=== PATIENT | female | born 1975 | race Caucasian/White ===

== ENCOUNTER → 2017-09-16 14:55 | Outpatient (CLI) | payer BC, SELFPAY ==
--- NOTE | 2017-09-16 | US_ITS ---
MM Dig mamm DX unilat RT CAD, US breast RT complete COMPARISON: 01/20/2017 INDICATION: Follow-up cyst aspiration ORDERING PHYSICIAN: Doe Newman MD PATIENT AGE: 42 years TECHNIQUE: Standard images performed spot compression views and right breast ultrasound FINDINGS: Right Mammogram: There is dense fibroglandular tissue which decreases sensitivity of mammography.. No malignant appearing mass or malignant appearing microcalcification nonspecific asymmetric density is noted medial aspect of the right breast similar to the previous exam consistent with fibroglandular tissue as noted on multiple previous exams. There is some asymmetric density in the central aspect of the right breast on the MLO view which is felt to be due to fibroglandular tissue as well. Right breast ultrasound: The previously noted complex nodule at outer 8:00 is no longer apparent. There are some debris-filled ducts at the 8:00 near the nipple region. No suspicious nodules evident. IMPRESSION: Benign findings. No evidence of malignancy. Previously noted complex nodule at 8:00 no longer apparent. There are some fluid-filled/debris-filled ducts at 8:00. BI-RADS Category: 2 Benign Finding(s) RECOMMENDED FOLLOW-UP: 1YR - 1 YEAR FOLLOW-UP Bilateral screening mammogram January 2018 (A letter has been sent to the patient regarding results of the study.)
== END ==
PROVIDERS: PCP Internal Medicine Adolescent Medicine; Visit Provider Obstetrics & Gynecology
DX: R92.8 Other abnormal and inconclusive findings on diagnostic imaging of breast (principal)
CPT/HCPCS: 76641; 77065

== ENCOUNTER 2017-10-07 07:05 | Day surgery (SDC) | payer BC, SELFPAY ==
[2017-10-06 12:05] VITALS: BMI 28.1
[2017-10-07] VITALS (12 sets, daily range): BP systolic 111–134; BP diastolic 64–83; PULSE 63–99; RESP 14–20; TEMP 36.7; O2SAT 96–99
[2017-10-07 08:09] LABS: Basophils % 0.4 % (0.1-2.0); Eosinophils # 0.2 K/mm3 (0.0-0.4); Hematocrit 41.4 % (37.0-47.0); Hemoglobin 13.8 g/dL (12.2-16.2); Lymphocytes # 3.1 K/mm3 (0.7-4.5); Lymphocytes % 30.1 K/mm3 (10-50); Mean Corpuscular HGB Conc 33.3 g/dL (31.8-35.4); Mean Corpuscular Hemoglobin 29.8 pg (27.0-31.2); Mean Corpuscular Volume 89.7 fl (81-99); Mean Platelet Volume 7.9 fl (7.4-10.4); Monocytes # 0.7 K/mm3 (0.1-1.0); Monocytes % 6.4 % (1.7-9.3); Neutrophils # 6.3 K/mm3 (1.8-7.8); Neutrophils % 61.1 % (37.0-80.0); Platelet Count 263 K/mm3 (142-424); Red Blood Count 4.62 M/mm3 (4.20-5.40); Red Cell Distribution Width 12.2 % (11.5-17.5); White Blood Count 10.3 K/mm3 (4.8-10.8)
--- NOTE | 2017-10-07 08:12 | HMH.SCOPE ---
- Procedure: Date: 10/07/17 Procedure Performed:: Esophagogastroduodenoscopy with biopsy Indications:: This is a 42-year-old female with a known history of mild shotty ring, gastric heterotopia duodenal mucosa, and gastritis/duodenitis. She returns for short-term repeat EGD secondary to reevaluation regarding gastric heterotopia. Performing Provider:: Stalin Ortiz MD Referring Provider:: Dr. Shahram Gupta Sedation:: IV sedation with 11 mg of Versed and 200 mcg of fentanyl Procedure:: After informed consent was obtained, the patient was taken to the endoscopy suite. IV sedation ensued after she was transferred to the left lateral decubitus position. The gastroscope was advanced. The gastroesophageal junction was at 39 cm. No definitive sign of Schatzki ring noted. The stomach was entered. Patchy inflammation was noted; however, the degree of inflammation was improved versus prior evaluation. Antral biopsies were obtained. The pylorus was intubated. Changes consistent with known diagnosis of heterotopia were noted and biopsies were obtained of the duodenal bulb. The gastroscope was carefully removed and the patient was transferred to recovery. Findings:: Gastroesophageal junction at 39 cm Mild gastritis Essentially unchanged gastric heterotopia of duodenal bulb Specimens:: Antral biopsy Duodenal bulb biopsy Recommendations:: Continue current medications Follow-up in 1 week Complications:: No immediate Estimated blood obtained (mL): 1
--- NOTE | 2017-10-07 08:16 | P.PCN_ITS ---
- Procedure: Date: 10/07/17 Procedure Performed:: Esophagogastroduodenoscopy with biopsy Indications:: This is a 42-year-old female with a known history of mild shotty ring, gastric heterotopia duodenal mucosa, and gastritis/duodenitis. She returns for short- term repeat EGD secondary to reevaluation regarding gastric heterotopia. Performing Provider:: Stalin Ortiz MD Referring Provider:: Dr. Shahram Gupta Sedation:: IV sedation with 11 mg of Versed and 200 mcg of fentanyl Procedure:: After informed consent was obtained, the patient was taken to the endoscopy suite. IV sedation ensued after she was transferred to the left lateral decubitus position. The gastroscope was advanced. The gastroesophageal junction was at 39 cm. No definitive sign of Schatzki ring noted. The stomach was entered. Patchy inflammation was noted; however, the degree of inflammation was improved versus prior evaluation. Antral biopsies were obtained. The pylorus was intubated. Changes consistent with known diagnosis of heterotopia were noted and biopsies were obtained of the duodenal bulb. The gastroscope was carefully removed and the patient was transferred to recovery. Findings:: Gastroesophageal junction at 39 cm Mild gastritis Essentially unchanged gastric heterotopia of duodenal bulb Specimens:: Antral biopsy Duodenal bulb biopsy Recommendations:: Continue current medications Follow-up in 1 week Complications:: No immediate Estimated blood obtained (mL): 1
[2017-10-07 08:31] LABS: Alanine Aminotransferase 27 U/L (12-78); Albumin Level 3.7 gm/dL (3.4-5.0); Albumin/Globulin Ratio 1.2 (1.1-1.8); Alkaline Phosphatase 64 U/L (46-116); Aspartate Amino Transferase 17 U/L (15-37); Bilirubin,Total 0.5 mg/dL (0.2-1.0); Blood Urea Nitrogen 15 mg/dL (7-18); Calcium 8.9 mg/dL (8.5-10.1); Carbon Dioxide 30 mmol/L (21.0-32.0); Chloride 108 mmol/L (98-107); Chol/HDL Ratio 2.6 (1-3.5); Cholesterol 175 mg/dL (140-200); Creatinine Clearance Estimated 93 mL/min (0-300); Creatinine,Serum 0.93 mg/dL (0.55-1.02); Estimated Glomerular Filt Rate 65 ml/min (>60); GFR (African American) 79 ML/MIN (>60); Globulin 3.1 gm/dl (1.3-3.2); Glucose 98 mg/dL (74-106); HDL Cholesterol 67 mg/dL (29-89); LDL Cholesterol 96 mg/dL (0-130); Sodium 144 mmol/L (136-145); Total Protein,Serum 6.8 gm/dL (6.4-8.2); Triglycerides 62 mg/dL (30-200); VLDL Cholesterol 12 mg/dL (0-40)
== END 2017-10-07 09:05 | disposition home or self-care (01) ==
LOC: OUTP 07:09
PROVIDERS: Nurse Practitioner Family; PCP Internal Medicine Adolescent Medicine; Visit Provider Surgery
PROC: 0DJ08ZZ Inspection of Upper Intestinal Tract, Via Natural or Artificial Opening Endoscopic (ICD-10-PCS; CPT 43235; principal; 2017-10-07 07:30)
DX: Q40.2 Other specified congenital malformations of stomach (principal)
CPT/HCPCS: 43239; 36415; 80053; 80061; 85025; 99152

== ENCOUNTER 2017-10-25 09:00 | Outpatient (RCR) | payer BC, SELFPAY ==
--- NOTE | 2017-10-04 08:57 | HMH.PTOPEV ---
Rehab Outpatient Evaluation Rehab OP Evaluation Start: 10/04/17 08:44 Freq: Status: Active Protocol: Document 10/04/17 08:44 PHORBISI (Rec: 10/04/17 08:54 PHORNE [id number]) Electronically Signed By Rayray Villanueva, PT 10/04/17 08:44 Outpatient Therapy Subjective History Subjective History Pt presents with c/o ciaran ankle /foot pain x 1-2 yrs overall, much worse x 2-3 mos and in the right LE. Pt reports hx of bone spurs on right hip which may contribute to problems in her feet. She reports pain is worse upon waking and in the evening after resting for even short periods of time. PMH: OA, FM, Cervical Cancer. Chief Complaint Pain Stiff Symptom Type Ache Symptoms Relieved By Rest/Positioning Symptoms Aggravated By Physical Activity Prior Functional Limitations None Current Functional Limitations Standing Walking Symptom Description Activity Dependent Level of pain today (0-10) 0 Pain scale - at its worst (0-10) 4 Ankle/Foot Eval Gait Observation General Gait Pattern Observation No Deviations/Normal Palpation Tenderness right Ankle/Foot Palpation Findings Tenderness Ankle/Foot Palpation Overall Comment medial ankle superior to malleolus, post tib tendon ROM Ankle/Foot Dorsiflexion w/Knee Flexed 0-15 Active Range of Motion (degrees) Ankle/Foot Dorsiflexion W/Knee Flexed 0-21 Passive Range Motion (degrees) Ankle/Foot ROM Limitations Soft Tissue Tightness MMT bilateral Ankle Dorsiflexion Strength Grade 5 Normal Ankle Plantarflexion Strength Grade 5 Normal Foot Eversion Strength Grade 5 Normal Foot Inversion Strength Grade 5 Normal Ankle Dorsiflexors Muscle Tone Normal Description Outpatient Therapy Assessment Impairments Problems/Impairmments Palpation Tenderness Impaired Range of Motion Impaired Walking Subjective C/O Pain Impaired Self Care/Self Management Prognosis Rehab Potential Good Clinical Impression Consistent with Diagnosis Yes Short Term Goals Number of Weeks 4 Increase Range of Motion Yes: right DF by 5 deg Increase Ability to Walk Yes: 30 min without pain Decrease Subjective C/O Pain Yes: 10/16 Patient to be Ind w/ HEP Yes
== END 2017-10-25 09:01 | disposition home or self-care (01) ==
LOC: PT 09:00
PROVIDERS: PCP Internal Medicine Adolescent Medicine; Visit Provider Podiatrist
DX: M76.61 Achilles tendinitis, right leg (principal)
CPT/HCPCS: 97033; 97035; 97110; 97140; 97760

== ENCOUNTER → 2018-07-15 09:33 | Outpatient (CLI) | payer BC, SELFPAY ==
--- NOTE | 2018-07-15 09:49 | US_ITS ---
MM Dig mamm BI DX w/CAD, US breast RT complete INDICATION: Follow up abnormal mammogram and ultrasound ORDERING PHYSICIAN: Doe Newman MD PATIENT AGE: 43 years COMPARISON: 01/04/2017, 09/16/2017, 11/29/2014 TECHNIQUE: Standard images performed along spot compression views of the right breast and right breast ultrasound FINDINGS: There is dense fibroglandular tissue decreases sensitivity of mammography. There is a 7 x 7 mm fairly well-circumscribed nodule in the 6:00 region of the right breast. This nodule is slightly smaller previously at 8 mm. No malignant appearing mass or malignant appearing microcalcification. Asymmetric density is present involving the medial aspect of the right breast which does appear to compress out on the focal spot compression view. Right breast ultrasound: 5 mm cyst at 3:00 8 mm hypoechoic nodule at 8:00. The margins are somewhat lobulated with good through transmission of sound. This however does not appear to represent a simple cyst. Previously there was a hypoechoic nodule in this area that did aspirate however, this does not appear to represent a cyst. Ductal dilatation near the nipple at 8:00 Left breast: Scattered asymmetric fibroglandular elements. No discrete mass or malignant microcalcification. IMPRESSION: Hypoechoic slightly suspicious nodule at 8:00 and 8 mm. Ultrasound-guided aspiration/biopsy suggested BI-RADS Category: 4 Suspicious Abnormality-Biopsy Considered RECOMMENDED FOLLOW-UP: BIO - BIOPSY RECOMMENDED (A letter has been sent to the patient regarding results of the study.)
== END ==
PROVIDERS: PCP Obstetrics & Gynecology; Visit Provider Obstetrics & Gynecology
DX: R92.8 Other abnormal and inconclusive findings on diagnostic imaging of breast (principal)
CPT/HCPCS: 76641; 77066

== ENCOUNTER → 2018-08-03 12:03 | Outpatient (CLI) | payer BC, SELFPAY ==
--- NOTE | 2018-08-03 12:05 | US_ITS ---
US breast cyst asp, US organ site (breast) HISTORY: Mildly suspicious nodule at 8:00 noticed on prior ultrasound. There was also a cyst at 3:00 measuring 5 mm. This however did not correspond to patient's palpable abnormality and therefore was not aspirated due to the small size and to the fact that it was not bothersome to the patient. The palpable abnormality represented fibroglandular tissue. ITS.REASON: RT. BREAST MASS X 2 ORDERING PHYSICIAN: Doe Newman MD PATIENT AGE: 43 years COMPARISON: 07/15/2018 Prebiopsy ultrasound: Ultrasound performed for the biopsy for planning demonstrates a 7 by 6 mm complex hypoechoic nodule at 8:00 near the nipple. This corresponded to the mildly suspicious abnormality noted on the previous ultrasound. The lesion however now appears more hypoechoic and likely due to a cyst with some internal debris. There was also a cyst at 3:00 measuring 5 mm. This however did not correspond to patient's palpable abnormality and therefore was not aspirated due to the small size and to the fact that it was not bothersome to the patient. The palpable abnormality represented fibroglandular tissue. TECHNIQUE: Following obtaining informed consent, using aseptic technique and local anesthesia with buffered lidocaine, fine-needle aspiration was performed of the nodule of interest at 8:00 near the nipple using sonographic guidance. One pass was made into the nodule with a 25-gauge needle. The nodule was completely aspirated. Minimal amount of greenish fluid was aspirated and sent to cytology for evaluation. The patient tolerated the procedure well without evidence of immediate complications and left the ultrasound suite in stable condition. CYTOLOGY:Negative for malignancy. Benign ductal cells and foam cells consistent with benign cyst IMPRESSION: Successful sonographic guided aspiration of the hypoechoic lesion at 8:00 showing benign findings. Recommend follow-up ultrasound in 6 months.
== END ==
PROVIDERS: PCP Internal Medicine Adolescent Medicine; Visit Provider Obstetrics & Gynecology
DX: N63.13 Unspecified lump in the right breast, lower outer quadrant
CPT/HCPCS: 10022; 76641; 76942

== ENCOUNTER 2018-10-14 08:44 | Outpatient (RCR) | payer BC, SELFPAY ==
--- NOTE | 2018-10-14 09:21 | HMH.OTOPEV ---
OT Inpatient Evaluation Rehab OT Outpatient Eval Start: 10/14/18 09:11 Freq: Status: Active Protocol: Document 10/14/18 09:11 TFRY (Rec: 10/14/18 09:21 TFRY [id number]) Electronically Signed By Galilea De La Vega, OT 10/14/18 09:11 Outpatient Therapy Subjective History Subjective History This is a 43 year old right handed female referred to occupational therapy for right wrist pain. Patient states that she woke up one morning with right wrist/thumb pain. She is unable to recall doing anything to it. 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 Strength Right Marine Photographer Strength Measurement (lbs) 70 Palmar Pinch (3-point) Ability Normal Performance Palmar Pinch (3-point) Strength 16 Measurement (lbs) Tip Pinch (2-point) Ability Normal Performance Tip Pinch (2-point) Strength Measurement 14 (lbs) Lateral Pinch Ability Normal Performance Lateral Pinch Strength Measurement (lbs) 18 Special Tests Wrist Finklestein Test Positive Right OT Outpatient Assessment Impairments Problems/Impairments Palpation Tenderness Subjective C/O Pain Prognosis Rehab Potential Fair Clinical Impression Consistent with Diagnosis Yes Short Term Goals Number of Weeks 3 Decreased Palpation Tenderness Yes: Right anatomical snuff box Decrease Subjective C/O Pain Yes: pain a 5 at worse in right wrist Patient to be Ind w/ HEP Yes Patient to be Ind w/ Advanced HEP Yes Meters Superintendent Goals Number of Weeks 6 Decreased Palpation Tenderness Yes: right anatomical snuff box Decrease Subjective C/O Pain Yes: Pain a 3 at worse in right wrist Patient to be Ind w/ HEP Yes Patient to be Ind w/ Advanced HEP Yes Outpatient Therapy Plan of C
== END 2018-10-14 08:55 | disposition home or self-care (01) ==
LOC: OT 08:44
PROVIDERS: Visit Provider Internal Medicine Adolescent Medicine
DX: M25.531 Pain in right wrist (principal); M65.4 Radial styloid tenosynovitis [de Quervain]
CPT/HCPCS: 97165

== ENCOUNTER → 2019-01-20 08:30 | Outpatient (CLI) | payer BC, SELFPAY ==
[2019-01-20 09:42] LABS: Alanine Aminotransferase 31 U/L (12-78); Albumin/Globulin Ratio 1.2 (1.1-1.8); Alkaline Phosphatase 76 U/L (46-116); Aspartate Amino Transferase 17 U/L (15-37); Blood Urea Nitrogen 14 mg/dL (7-18); Calcium 9.1 mg/dL (8.5-10.1); Carbon Dioxide 29 mmol/L (21.0-32.0); Chloride 102 mmol/L (98-107); Chol/HDL Ratio 5.5 (1-3.5); Cholesterol 293 mg/dL (140-200); Creatinine,Serum 0.88 mg/dL (0.55-1.02); Estimated Glomerular Filt Rate 69 ml/min (>60); Free T4 (Free Thyroxine) 0.93 ng/dl (0.76-1.46); GFR (African American) 84 ML/MIN (>60); Globulin 3.4 gm/dl (1.3-3.2); Glucose 94 mg/dL (74-106); HDL Cholesterol 53 mg/dL (29-89); LDL Cholesterol 215 mg/dL (0-130); Sodium 141 mmol/L (136-145); Thyroid Stimulating Hormone 1.04 uIU/ml (0.358-3.740); Total Protein,Serum 7.4 gm/dL (6.4-8.2); Triglycerides 125 mg/dL (30-200); VLDL Cholesterol 25 mg/dL (0-40)
== END ==
PROVIDERS: Visit Provider Nurse Practitioner Family
DX: R23.2 Flushing (principal); E78.5 Hyperlipidemia, unspecified
CPT/HCPCS: 36415; 80053; 80061; 84439; 84443

== ENCOUNTER → 2019-02-03 14:16 | Outpatient (CLI) | payer OTHER, SELFPAY | PROVIDERS: PCP Internal Medicine Adolescent Medicine; Visit Provider Obstetrics & Gynecology | DX: R92.8 Other abnormal and inconclusive findings on diagnostic imaging of breast (principal) ==

== ENCOUNTER → 2019-02-17 09:26 | Outpatient (CLI) | payer OTHER, SELFPAY ==
--- NOTE | 2019-02-17 09:26 | US_ITS ---
US breast RT complete INDICATION: 6 month follow-up ORDERING PHYSICIAN: Doe Newman MD PATIENT AGE: 43 years COMPARISON: None TECHNIQUE: Right breast ultrasound complete with axilla FINDINGS: There is a 4 mm hypoechoic nodule at 3:00 probably benign and may represent a small complex cyst. Previously noted nodule at 8:00 has not recurred. There is a 7 x 4 mm cyst at 10:00. IMPRESSION: Benign findings, no evidence of malignancy or recurrent nodule was aspirated. Recommend screening mammogram July 2019 BI-RADS Category: 2 Benign Finding(s) RECOMMENDED FOLLOW-UP: 6M - 6 MONTH FOLLOW-UP (A letter has been sent to the patient regarding results of the study.)
== END ==
PROVIDERS: PCP Internal Medicine Adolescent Medicine; Visit Provider Obstetrics & Gynecology
DX: N63.10 Unspecified lump in the right breast, unspecified quadrant (principal)
CPT/HCPCS: 76641

== ENCOUNTER → 2019-04-20 12:11 | Outpatient (CLI) | payer OTHER, SELFPAY ==
[2019-04-20 14:56] LABS: Alanine Aminotransferase 23 U/L (12-78); Albumin Level 3.9 gm/dL (3.4-5.0); Albumin/Globulin Ratio 1.2 (1.1-1.8); Alkaline Phosphatase 85 U/L (46-116); Anion Gap 13.9 mEq/L (5-15); Aspartate Amino Transferase 13 U/L (15-37); Bilirubin,Total 0.7 mg/dL (0.2-1.0); Blood Urea Nitrogen 15 mg/dL (7-18); Calcium 9.5 mg/dL (8.5-10.1); Carbon Dioxide 30 mmol/L (21.0-32.0); Chloride 105 mmol/L (98-107); Chol/HDL Ratio 3.6 (1-3.5); Cholesterol 225 mg/dL (140-200); Creatinine,Serum 0.86 mg/dL (0.55-1.02); Estimated Glomerular Filt Rate 71 ml/min (>60); GFR (African American) 86 ML/MIN (>60); Globulin 3.3 gm/dl (1.3-3.2); Glucose 85 mg/dL (74-106); HDL Cholesterol 62 mg/dL (29-89); LDL Cholesterol 147 mg/dL (0-130); Potassium 3.9 mmoL/L (3.5-5.1); Sodium 145 mmol/L (136-145); Total Protein,Serum 7.2 gm/dL (6.4-8.2); Triglycerides 80 mg/dL (30-200); VLDL Cholesterol 16 mg/dL (0-40)
== END ==
PROVIDERS: Visit Provider Nurse Practitioner Family
DX: E78.5 Hyperlipidemia, unspecified (principal)
CPT/HCPCS: 36415; 80053; 80061

== ENCOUNTER → 2019-10-09 09:09 | Outpatient (CLI) | payer OTHER, SELFPAY ==
[2019-10-09 09:35] LABS: Basophils % 0.6 % (0.1-2.0); Eosinophils # 0.3 K/mm3 (0.0-0.4); Eosinophils % 4.3 % (0.1-12.0); Hematocrit 41.2 % (37.0-47.0); Hemoglobin 13.2 g/dL (12.2-16.2); Lymphocytes # 2.5 K/mm3 (0.7-4.5); Lymphocytes % 37.9 % (10-50); Mean Corpuscular HGB Conc 32.1 g/dL (31.8-35.4); Mean Corpuscular Hemoglobin 29.9 pg (27.0-31.2); Mean Corpuscular Volume 93.1 fl (81-99); Mean Platelet Volume 7.7 fl (7.4-10.4); Monocytes # 0.5 K/mm3 (0.1-1.0); Neutrophils # 3.3 K/mm3 (1.8-7.8); Neutrophils % 50.2 % (37.0-80.0); Platelet Count 284 K/mm3 (142-424); Red Blood Count 4.42 M/mm3 (4.20-5.40); Red Cell Distribution Width 12.3 % (11.5-17.5); White Blood Count 6.6 K/mm3 (4.8-10.8)
[2019-10-09 10:21] LABS: Alanine Aminotransferase 25 U/L (12-78); Albumin Level 3.8 gm/dL (3.4-5.0); Albumin/Globulin Ratio 1.5 (1.1-1.8); Alkaline Phosphatase 87 U/L (46-116); Anion Gap 11.7 mEq/L (5-15); Aspartate Amino Transferase 20 U/L (15-37); Bilirubin,Total 0.5 mg/dL (0.2-1.0); Blood Urea Nitrogen 21 mg/dL (7-18); Calcium 8.6 mg/dL (8.5-10.1); Carbon Dioxide 29 mmol/L (21.0-32.0); Chloride 106 mmol/L (98-107); Chol/HDL Ratio 3.7 (1-3.5); Cholesterol 205 mg/dL (140-200); Creatinine,Serum 0.99 mg/dL (0.55-1.02); Estimated Glomerular Filt Rate 60 ml/min (>60); GFR (African American) 73 ML/MIN (>60); Globulin 2.6 gm/dl (1.3-3.2); Glucose 105 mg/dL (74-106); HDL Cholesterol 56 mg/dL (29-89); LDL Cholesterol 136 mg/dL (0-130); Potassium 3.7 mmoL/L (3.5-5.1); Sodium 143 mmol/L (136-145); Thyroid Stimulating Hormone 1.07 uIU/ml (0.358-3.740); Total Protein,Serum 6.4 gm/dL (6.4-8.2); Triglycerides 67 mg/dL (30-200); VLDL Cholesterol 13 mg/dL (0-40)
[2019-10-10 14:02] LABS: Vitamin B12 485 pg/mL (232-1245)
== END ==
PROVIDERS: Visit Provider Nurse Practitioner Family
DX: E78.5 Hyperlipidemia, unspecified (principal); R53.81 Other malaise; M25.851 Other specified joint disorders, right hip
CPT/HCPCS: 36415; 80053; 80061; 82607; 82652; 84443; 85025

== ENCOUNTER → 2020-03-20 09:10 | Outpatient (CLI) | payer OTHER, SELFPAY ==
[2020-03-20 14:18] LABS: Alanine Aminotransferase 18 U/L (12-78); Albumin Level 4.4 g/dl (3.5-5.0); Albumin/Globulin Ratio 1.6 (1.1-1.8); Alkaline Phosphatase 93 U/L (38-126); Amylase 39 U/L (30-110); Anion Gap 10.9 mEq/L (5-15); Aspartate Amino Transferase 28 U/L (14-36); Basophils % 0.4 % (0.1-2.0); Bilirubin,Total 0.9 mg/dl (0.2-1.3); Blood Urea Nitrogen 15 mg/dl (7-17); Calcium 9.4 mg/dl (8.4-10.2); Carbon Dioxide 31 mmol/L (22.0-30.0); Chloride 103 mmol/L (98-107); Chol/HDL Ratio 3.3 (1-3.5); Cholesterol 210 mg/dl (140-200); Eosinophils # 0.4 K/mm3 (0.0-0.4); Eosinophils % 5.9 % (0.1-12.0); Estimated Glomerular Filt Rate 77 ml/min (>60); GFR (African American) 93 ML/MIN (>60); Globulin 2.7 g/dL (1.3-3.2); Glucose 102 mg/dl (74-100); HDL Cholesterol 63 mg/dl (40-60); Hematocrit 43.3 % (37.0-47.0); Hemoglobin 14.6 g/dL (12.2-16.2); Lipase 48 U/L (23-300); Lymphocytes # 2.5 K/mm3 (0.7-4.5); Lymphocytes % 40.6 % (10-50); Mean Corpuscular HGB Conc 33.8 g/dL (31.8-35.4); Mean Corpuscular Hemoglobin 31.6 pg (27.0-31.2); Mean Corpuscular Volume 93.4 fl (81-99); Mean Platelet Volume 9.5 fl (7.4-10.4); Monocytes # 0.4 K/mm3 (0.1-1.0); Monocytes % 6.8 % (1.7-9.3); Neutrophils # 2.9 K/mm3 (1.8-7.8); Neutrophils % 46.3 % (37.0-80.0); Platelet Count 292 K/mm3 (142-424); Potassium 3.9 mmoL/L (3.5-5.1); Red Blood Count 4.63 M/mm3 (4.20-5.40); Red Cell Distribution Width 12.7 % (11.5-17.5); Sodium 141 mmol/L (136-145); Total Protein,Serum 7.1 g/dl (6.3-8.2); Triglycerides 108 mg/dl (30-150); VLDL Cholesterol 22 mg/dL (0-40); White Blood Count 6.2 K/mm3 (4.8-10.8)
[2020-03-20 14:36] LABS: Direct LDL Cholesterol 131.34 mg/dL (100-129)
[2020-03-20 14:50] LABS: Thyroid Stimulating Hormone 1.12 uIU/mL (0.465-4.68)
[2020-03-20 17:22] LABS: Erythrocyte Sedimentation Rate 8 mm/hr (0-20)
[2020-03-21 17:04] LABS: RA Latex Turbid. <10.0 IU/mL (0.0-13.9)
[2020-03-23 07:35] LABS: Anti-Cyclic Citrullinated Pept 6 units (0-19)
[2020-03-31 18:13] LABS: Antinuclear Antibodies (ANA) NEGATIVE
== END ==
PROVIDERS: PCP Nurse Practitioner Family; Visit Provider Nurse Practitioner Family
DX: E78.5 Hyperlipidemia, unspecified (principal); M25.542 Pain in joints of left hand; M25.541 Pain in joints of right hand; R10.13 Epigastric pain
CPT/HCPCS: 36415; 80053; 80061; 82150; 83690; 84443; 85025; 85651; 86038; 86200; 86431

== ENCOUNTER → 2020-04-26 08:56 | Outpatient (CLI) | payer BC, SELFPAY ==
--- NOTE | 2020-04-26 08:56 | MM_ITS ---
PROCEDURE: MM DIG SCREENING MAMM BI W/CAD Digital Breast Tomosynthesis Included CLINICAL INDICATION: screening xmg There is a history of breast cancer patient's maternal aunts and paternal grandmother COMPARISON: MG DMDXUR DIG MAMM-DX UNI-RT W/CAD from 01/20/2017 MG DXRT MM Dig mamm DX unilat RT CAD from 09/16/2017 TECHNIQUE: Standard CC and MLO images and 3D Tomosynthesis was obtained. R2 CAD reviewed. FINDINGS: There is a diffusely dense and heterogenic parenchymal pattern bilaterally. There is a benign-appearing microcalcification left breast. There are stable benign-appearing nodular densities subareolar region right breast. There is no suspicious lesion and no suspicious microcalcifications. IMPRESSION: Moderately and diffusely dense parenchymal pattern with no suspicious lesions seen BI-RAD Category: 2 Benign Finding(s) FOLLOW-UP: 1YR 1 Year Follow-up (A letter has been sent to the patient regarding results of the study.) Dictated by: Dr. Dio Lindquist MD 04/26/2020 13:16 Dr. Dio Lindquist MD in [place] 04/26/2020 13:16
== END ==
PROVIDERS: PCP Nurse Practitioner Family; Visit Provider Nurse Practitioner Obstetrics & Gynecology
DX: Z12.31 Encounter for screening mammogram for malignant neoplasm of breast (principal)
CPT/HCPCS: 77063; 77067

== ENCOUNTER → 2020-11-28 12:52 | Outpatient (CLI) | payer BC, SELFPAY ==
--- NOTE | 2020-11-28 12:52 | MM_ITS ---
PROCEDURE: MM DIG MAMM DX UNILAT RT CAD Digital Breast Tomosynthesis Included CLINICAL INDICATION: breast pain, fibrocystic breast disease Palpable right breast nodule COMPARISON: MG DXRT MM Dig mamm DX unilat RT CAD from 09/16/2017 MG DXBI MM Dig mamm BI DX w/CAD from 07/15/2018 US BREASTRT US breast RT complete from 07/15/2018 MG MM DIG SCREENING MAMM BI W/CAD from 04/26/2020 US US BREAST RT COMPLETE from 11/28/2020 TECHNIQUE: Standard images performed along with spot compression views and right breast ultrasound FINDINGS: There is dense fibroglandular tissue which somewhat limits mammographic evaluation. On the tomographic images there is a 3 mm benign-appearing nodule in the superior aspect of the right breast and may have been present previously not readily identified due to slight different positioning. This may be medial. Right breast ultrasound: Echo dense fibroglandular tissue. There is some ductal prominence in the retroareolar region. No discrete mass apparent. IMPRESSION: Probably benign findings. Benign-appearing nodule noted in the superior right breast possibly medially. This may been present previously but obscured by overlying fibroglandular tissue. No malignant appearing mass or microcalcification. Suggest resume screening mammogram bilaterally in 6 months. BI-RAD Category: 3 Probably Benign Finding Short Term Follow-up FOLLOW-UP: 6M 6Month Follow-up (A letter has been sent to the patient regarding results of the study.) Dictated by: Jerzy Le MD 11/29/2020 13:44 Jerzy Le MD in [place] 11/29/2020 13:44
== END ==
PROVIDERS: PCP Nurse Practitioner Family; Visit Provider Nurse Practitioner Obstetrics & Gynecology
DX: N64.4 Mastodynia (principal); N60.11 Diffuse cystic mastopathy of right breast
CPT/HCPCS: 76641; 77061; 77065; G0279

== ENCOUNTER → 2021-02-25 14:47 | Outpatient (CLI) | payer BC, SELFPAY ==
[2021-02-25 15:28] LABS: Basophils # 0.1 K/mm3 (0-0.2); Basophils % 0.6 % (0.1-2.0); Eosinophils # 0.2 K/mm3 (0.0-0.4); Eosinophils % 2.7 % (0.1-12.0); Lymphocytes # 2.8 K/mm3 (0.7-4.5); Lymphocytes % 37.7 % (10-50); Mean Corpuscular HGB Conc 35.1 g/dL (31.8-35.4); Mean Corpuscular Hemoglobin 30.9 pg (27.0-31.2); Mean Platelet Volume 7.7 fl (7.4-10.4); Monocytes # 0.5 K/mm3 (0.1-1.0); Monocytes % 6.4 % (1.7-9.3); Neutrophils # 3.9 K/mm3 (1.8-7.8); Neutrophils % 52.6 % (37.0-80.0); Platelet Count 274 K/mm3 (142-424); Red Blood Count 4.54 M/mm3 (4.20-5.40); Red Cell Distribution Width 12.8 % (11.5-17.5); White Blood Count 7.4 K/mm3 (4.8-10.8)
[2021-02-25 15:41] LABS: Chloride 103 mmol/L (98-107); Potassium 4.3 mmoL/L (3.5-5.1); Sodium 141 mmol/L (136-145)
[2021-02-25 15:43] LABS: Blood Urea Nitrogen 13 mg/dl (7-17); Estimated Glomerular Filt Rate 67 ml/min (>60); GFR (African American) 81 ML/MIN (>60)
[2021-02-25 15:44] LABS: Alanine Aminotransferase 17 U/L (12-78); Albumin Level 4.8 g/dl (3.5-5.0); Albumin/Globulin Ratio 1.8 (1.1-1.8); Alkaline Phosphatase 72 U/L (38-126); Anion Gap 12.3 mEq/L (5-15); Aspartate Amino Transferase 26 U/L (14-36); Bilirubin,Total 1.1 mg/dl (0.2-1.3); Calcium 9.8 mg/dl (8.4-10.2); Carbon Dioxide 30 mmol/L (22.0-30.0); Globulin 2.6 g/dL (1.3-3.2); Glucose 89 mg/dl (74-100); Total Protein,Serum 7.4 g/dl (6.3-8.2)
[2021-02-26 14:45] LABS: Chol/HDL Ratio 3.5 (1-3.5); Cholesterol 184 mg/dl (140-200); HDL Cholesterol 52 mg/dl (40-60); Triglycerides 98 mg/dl (30-150); VLDL Cholesterol 20 mg/dL (0-40)
[2021-02-26 14:57] LABS: Direct LDL Cholesterol 94.62 mg/dL (100-129)
== END ==
PROVIDERS: Visit Provider Nurse Practitioner Family
DX: M25.50 Pain in unspecified joint (principal); E78.5 Hyperlipidemia, unspecified
CPT/HCPCS: 36415; 80053; 80061; 85025

== ENCOUNTER → 2021-04-30 08:18 | Outpatient (CLI) | payer BC, SELFPAY ==
--- NOTE | 2021-04-30 08:19 | MM_ITS ---
PROCEDURE: MM DIG SCREENING MAMM BI W/CAD Digital Breast Tomosynthesis Included CLINICAL INDICATION: screening xmg COMPARISON: MG DXBI MM Dig mamm BI DX w/CAD from 07/15/2018 MG MM DIG SCREENING MAMM BI W/CAD from 04/26/2020 MG MM DIG MAMM DX UNILAT RT CAD from 11/28/2020 TECHNIQUE: Standard CC and MLO images and 3D Tomosynthesis was obtained. R2 CAD reviewed. FINDINGS: Heterogeneously dense fibroglandular tissue. Bilateral benign-appearing nodules with benign-appearing calcification.No suspicious appearing mass, malignant-appearing microcalcification, architectural distortion, or skin thickening. No significant change IMPRESSION: Benign findings BI-RAD Category: 2 Benign Finding FOLLOW-UP: 1 YR 1 Year Follow-up (A letter has been sent to the patient regarding results of the study.) Dictated by: Jerzy Le MD 05/05/2021 13:27 Jerzy Le MD in [place] 05/05/2021 13:27
== END ==
PROVIDERS: PCP Nurse Practitioner Family; Visit Provider Nurse Practitioner Obstetrics & Gynecology
DX: Z12.31 Encounter for screening mammogram for malignant neoplasm of breast (principal)
CPT/HCPCS: 77063; 77067

== ENCOUNTER 2021-09-07 15:32 | Emergency (ER) | payer BC, SELFPAY ==
[2021-09-07 17:51] VITALS: BP 152/90; PULSE 91; RESP 18; TEMP 36.8; O2SAT 99; BMI 27.4
[2021-09-07 17:56] LABS: UTC Influenza A Antigen Negative (Negative); UTC Influenza B Antigen Negative (Negative)
[2021-09-07 17:57] LABS: UTC Strep Screen (Rapid) Positive (Negative)
--- NOTE | 2021-09-07 18:41 | HMH.EDUTC ---
[facility] [place] Disposition Clinical Impression: Strep throat Disposition: Home, Self-Care Condition on Discharge: Good Instructions: Strep Throat, DI for Strep Throat Additional Instructions: Drink plenty of fluids. Take tylenol or ibuprofen for pain or fever. Take the medications as directed. Follow up with your regular doctor. GO TO THE ER FOR ANY WORSENING SYMPTOMS Throw your tooth brush away and get a new one. Referrals: Shahram Gupta MD [Primary Care Provider] - Forms: Work/School Release Time of Disposition: 18:53 Medical Decision Making - Medical Records Medical records reviewed: No: I reviewed the patient's medical records. - Satya Inquiry Pt receiving controlled substance: No Vital Signs: 09/07/21 17:51 09/07/21 19:01 Temperature 98.3 F 98.3 F Temperature Source Oral Pulse Rate 91 H Pulse Rate [Left] 91 H Respiratory Rate 18 18 Blood Pressure 152/90 H Blood Pressure [Right Arm] 152/90 H Blood Pressure Mean [Right Arm] 110 02 Sat by Pulse Oximetry 99 - Lab Data Lab results reviewed: Yes: I reviewed the patient's lab results. Lab Results 09/07/21 17:49: Strep Scn [facility] Positive A 09/07/21 17:49: Influenza Type A Ag Negative, Influenza Type B Ag Negative Orders (Tests/Meds): ED MEDICATIONS Discontinued Medications Generic Name Dose Route Start Last Admin Trade Name Freq PRN Reason Stop Dose Admin Penicillin G Benzathine 1,200,000 unit 09/07/21 18:52 09/07/21 19:00 Penicillin G Benzathine 1,200,000 Units/2ml Syringe IM 09/07/21 18:53 1,200,000 unit ONCE ONE Administration ORDERS Category Date Time Status Covid-19 Nasal PCR ([facility]) Routine Lab 09/07/21 17:44 Received [facility] [place] HPI - General Stated complaint: cough,SHAH Diarrhea Body Pain Congestion Time Seen by Provider: 09/07/21 18:41 Mode of Arrival: Ambulatory Source of Information: Patient Limitations: No Limitations Description of Symptoms (Recalled from Triage Doc. by RN): pt c/o myalgia, SHAH, diarrhea, cough, and nasal congestion/drainage. ongoing since yesterday HEENT Symptoms (Recalled from RN notes): Yes Resp Symptoms (Recalled from RN notes): Yes Skin Symptoms (Recalled from RN notes): No MS Symptoms (Recalled from RN notes): No Functional Status (Recalled from RN notes): wnl - History of Present Illness Provider Complaint: She c/o 2 days of body aches, head ache, fatigue, scratchy sore throat. - Related Data Home Medications Medication Instructions Recorded Confirmed cholecalciferol (vitamin D3) 25 1,000 unit PO ONCE 09/08/17 01/24/21 mcg (1,000 unit) capsule esomeprazole magnesium 20 mg 20 mg PO QDAY cap 09/08/17 01/24/21 capsule,delayed release amitriptyline 25 mg tablet 25 mg PO tab 01/25/20 01/24/21 sumatriptan succinate 50 mg tablet ea PO 01/25/20 01/24/21 atorvastatin 40 mg tablet 40 mg PO tab 01/24/21 01/24/21 hydroxychloroquine 200 mg tablet 200 mg PO tab 01/24/21 01/24/21 promethazine 25 mg tablet 25 mg PO tab 01/24/21 01/24/21 Previous Rx's Medication Instructions Recorded estradiol 10 mcg vaginal tablet 10 mcg VAGINAL DAILY #19 tab 02/06/21 Allergies Allergy/AdvReac Type Severity Reaction Status Date / Time No Known Allergies Allergy Verified 01/24/21 10:07 - Worker's Comp Is this a Worker's Comp case?: No [facility] History - Hepatitis A Screen Drug use history?: No High risk sexual behaviors?: No History of sexually transmitted infection?: No Currently employed?: No Childcare worker?: No Do you have indoor plumbing?: Yes Do you have electricity?: Yes Attestation statement:: This patient has been screened for Hepatitis A risk factors. I have reviewed the patient's past medical history: Yes Medical History: Reports:: Gastroesophageal Reflux Disease(GERD), Hyperlipidemia, Migraine Denies:: Cancer, Chronic Obstructive Pulmonary Disease (COPD), Diabetes Mellitus Type 1, Diabetes Mellitus Type 2, Gall Bladder Disease
[2021-09-07 19:01] VITALS: BP 152/90; PULSE 91; RESP 18; TEMP 36.8
== END 2021-09-07 19:15 | disposition home or self-care (01) ==
PROVIDERS: Emergency Provider Nurse Practitioner Family; PCP Internal Medicine Adolescent Medicine
DX: U07.1 COVID-19 (principal); J02.0 Streptococcal pharyngitis; K21.9 Gastro-esophageal reflux disease without esophagitis; E78.5 Hyperlipidemia, unspecified; M79.7 Fibromyalgia; F17.210 Nicotine dependence, cigarettes, uncomplicated
CPT/HCPCS: 87804; 87880; 99202; C9803; G0463; J0561; U0003; U0005

== ENCOUNTER → 2021-11-11 14:41 | Outpatient (CLI) | payer BC, SELFPAY ==
--- NOTE | 2021-11-11 14:41 | US_ITS ---
PROCEDURE INFORMATION: Exam: US Right Breast, Complete Exam date and time: 11/11/2021 2:41 PM Age: 46 years old Clinical indication: Right breast pain. Most recent mammogram 05/05/2021. TECHNIQUE: Imaging protocol: Complete ultrasound of all four quadrants of the Right breast and the retroareolar regions, including ultrasound of the axilla when performed. COMPARISON: US BREAST RT COMPLETE 11/28/2020 1:53 PM FINDINGS: Breast: Right sonography, all 4 quadrants, retroareolar and axilla. At 12 o'clock 3 cm from the nipple, 0.2 cm benign-appearing cyst. At 3 o'clock, 3 cm from the nipple, annotated as palpable area, no cystic or solid findings are demonstrated. No other findings demonstrated. Sonographically unremarkable right axillary lymph node. IMPRESSION: Minimal benign-appearing cystic change in this patient with history of breast pain. Follow-up of pain clinically. No sonographic findings at the area of palpable concern - please correlate clinically, additional diagnostic mammography may be indicated for further evaluation of a palpable finding. Further evaluation of a palpable abnormality should be based on clinical grounds regardless of radiographic findings or lack thereof. No sonographic evidence of malignancy. Annual mammographic screening is recommended unless otherwise clinically indicated. ASSESSMENT: see comment BI-RADS Category 2: Benign
== END ==
PROVIDERS: PCP Internal Medicine Adolescent Medicine; Visit Provider Obstetrics & Gynecology
DX: N63.10 Unspecified lump in the right breast, unspecified quadrant (principal)
CPT/HCPCS: 76641

== ENCOUNTER → 2021-12-01 12:42 | Outpatient (CLI) | payer BC, SELFPAY ==
--- NOTE | 2021-12-01 12:42 | MM_ITS ---
PROCEDURE INFORMATION: Exam: MG Right Diagnostic Breast Tomosynthesis Exam date and time: 12/01/2021 1:08 PM Age: 46 years old Clinical indication: Recall the basis of diagnostic ultrasound from 11/11/2021 for mammographic evaluation of palpable concern in the right breast at 3 o'clock. TECHNIQUE: Imaging protocol: Right Diagnostic tomosynthesis and 2D mammography including computer-aided detection (CAD) when performed. Unilateral or bilateral exam. Triangular marker placed on area of clinical concern. COMPARISON: 1. MG MM DIG SCREENING MAMM BI W/CAD 04/30/2021 8:16 AM 2. MG MM DIG MAMM DX UNILAT RT CAD 11/28/2020 1:08 PM 3. MG MM DIG SCREENING MAMM BI W/CAD 04/26/2020 9:02 AM 4. MG DXBI MM Dig mamm BI DX w/CAD 07/15/2018 11:30 AM FINDINGS: MAMMOGRAPHY: The breast tissue is heterogeneously dense, which may obscure small masses. No focal mammographic findings at the area of palpable concern at 3 o'clock. No suspicious mass. No suspicious calcifications. No asymmetry. No architectural distortion. Unremarkable axilla. IMPRESSION: No mammographic findings at the area of palpable concern at 3 o'clock. Further evaluation of a palpable abnormality should be based on clinical grounds regardless of radiographic findings or lack thereof. Patient due for annual screening mammogram in April 2022, unless otherwise clinically indicated. ASSESSMENT: BI-RADS Category 1: Negative
== END ==
PROVIDERS: PCP Internal Medicine Adolescent Medicine; Visit Provider Obstetrics & Gynecology
DX: R92.8 Other abnormal and inconclusive findings on diagnostic imaging of breast (principal)
CPT/HCPCS: 77061; 77065; G0279

== ENCOUNTER 2022-10-14 11:25 | Day surgery (SDC) | payer BC, SELFPAY ==
[2022-09-24 12:47] VITALS: BMI 27.1
[2022-10-14 11:41] VITALS: BP 145/83; PULSE 90; RESP 18; TEMP 36.8; O2SAT 99
--- NOTE | 2022-10-14 11:51 | P.PN_ITS ---
[facility] Disclaimer: The information contained in this section may have been updated after the patient was seen, as this information can be updated by other users. Medical History History of depression History of gastroesophageal reflux (GERD) Hx of depression headache Hyperlipidemia Kidney stone Migraine Rheumatoid arthritis Surgical History History of cardiac radiofrequency ablation History of cone biopsy of cervix History of extraction of renal calculus Hx of dilation and curettage Hx of tonsillectomy Family History Other Family history of cancer Family history of diabetes mellitus type II Family history of hyperlipidemia Family history of hypertension Social History Smoking Status: Current every day smoker tobacco type: cigarettes packs per day: 1 pack-years: 20 alcohol intake: current counseling provided: none substance use type: denies use current occupational status: employed Travel in the last 8 weeks: None household members: spouse housing: house lives independently: Yes marital status: education level: college caffeine: Yes special cesilia needs: No agree to transfusion: No do you feel safe at home: Yes victim of physical abuse: No victim of emotional abuse: No victim of sexual abuse: No would you like helpful sources: No [facility] Anesthesia Checklist Patient Identification Patient Identification: Arm Band and Verbal (Name & ) Structural Data Admitted From: Home Planned Operative Procedure/s: EGD/Colonoscopy Consent for Planned Operative Procedure(s) Verified: Yes NPO Status Verified Time NPO: 00:00 Additional verifications Anesthesia Reactions: No Airway Assessment C-Spine Mobility Assessed: Yes TMJ Mobility Assessed: Yes Dentition: Good Dentition Neurological Assessment Level of Consciousness: Awake Numbness or tingling in extremities: No Anesthesia Plan Anesthesia Risk discussed: Yes Anesthesia Plan: Verified ASA Class: II Anesthesia Type: MAC
[2022-10-14 12:07] VITALS: O2SAT 97
--- NOTE | 2022-10-14 12:34 | HMH.SCOPE ---
Procedure: Date: 10/14/22 Patient Date of :: 1975 Procedure Performed:: EGD Indications:: Chronic intermittent abdominal pain, nausea, and GERD symptoms Performing Provider:: Moncho Stewart MD Referring Provider:: Elaine Garber APRN Sedation:: See RN records Procedure:: The gastroscope was gently passed through the incisoral orifice into the oral cavity and under direct visualization the esophagus was intubated. The endoscope was passed down the esophagus, through the stomach, and into the duodenum. Color, texture, mucosa, and anatomy of the esophagus, stomach, and duodenum were carefully examined with the scope. Findings:: Oropharynx: normal Esophagus: normal. Biopsies obtained distal and mid esophagus. Inlet patch upper esophagus EG Junction: measured at 36 cm Cardia: Small hiatal hernia Fundus: normal Body: Mild gastritis. Biopsies obtained Antrum: Mild gastritis. Biopsies obtained Duodenal bulb: appearance of gastric heterotopia. Biopsies obtained Duodenum (second and third portion): normal. Biopsies obtained Impression: Small hiatal hernia Minimal gastritis Duodenal gastric heterotopia Recommendations:: Await pathology results Can use prilosec 20 mg once daily as needed Complications:: None Estimated blood obtained (mL): 0
[2022-10-14 12:37] VITALS: BP 108/54; PULSE 91; RESP 20; TEMP 36.3; O2SAT 100
--- NOTE | 2022-10-14 12:37 | HMH.SCOPE ---
Procedure: Date: 10/14/22 Patient Date of :: 1975 Procedure Performed:: Colonoscopy Indications:: The patient is a 47 year old who presents for screening colonoscopy Performing Provider:: Moncho Stewart MD Referring Provider:: Elaine Garber APRN Sedation:: See RN records Procedure:: After placing the patient in the left lateral decubitus position, the colonoscopy was gently inserted into the rectum and under direct visualization advanced to the cecum which was identified by transillumination in the right lower quadrant, identification of the ileocecal valve, appendiceal orifice, and cecal strap. Color, texture, mucosa, and anatomy of the colon were carefully examined with the scope. Findings:: Anal canal: normal Rectum: normal Sigmoid colon: Three sessile polyps less than 5 mm in size. Removed with cold snare polypectomy Descending colon: Sessile polyp 5-6 mm in size. Removed with cold snare polypectomy Splenic flexure: normal Transverse colon: normal without polyps or inflammatory changes Hepatic flexure: normal Ascending colon: normal without polyps or inflammatory changes Cecum: normal Terminal ileum: not visualized Impression: Polyps of descending and sigmoid colon Recommendations:: Await pathology results Repeat colonoscopy most hadley in 5 years Complications:: None Estimated blood obtained (mL): 0
[2022-10-14 12:55] VITALS: BP 127/68; PULSE 93; RESP 20; O2SAT 100
[2022-10-14 13:10] VITALS: BP 140/74; PULSE 90; RESP 20; O2SAT 100
[2022-10-14 13:15] VITALS: BP 120/51; PULSE 89; RESP 18; O2SAT 100
--- NOTE | 2022-10-14 13:33 | PC.NURSE ---
1305- @ . No new orders received.
== END 2022-10-14 13:16 | disposition home or self-care (01) ==
LOC: OUTP 11:26
PROVIDERS: PCP Internal Medicine Adolescent Medicine; Visit Provider Internal Medicine
PROC: 0DJ08ZZ Inspection of Upper Intestinal Tract, Via Natural or Artificial Opening Endoscopic (ICD-10-PCS; CPT 43235; principal; 2022-10-14 12:30)
DX: Z12.11 Encounter for screening for malignant neoplasm of colon (principal); K21.00 Gastro-esophageal reflux disease with esophagitis, without bleeding; K29.80 Duodenitis without bleeding; K63.5 Polyp of colon; R10.9 Unspecified abdominal pain; R11.0 Nausea; K44.9 Diaphragmatic hernia without obstruction or gangrene; F17.210 Nicotine dependence, cigarettes, uncomplicated; Z79.899 Other long term (current) drug therapy
CPT/HCPCS: 43239; 45385; 88305

== ENCOUNTER → 2023-02-09 08:47 | Outpatient (POV) | payer BC, SELFPAY | PROVIDERS: Visit Provider Dermatology | DX: Z00.00 Encounter for general adult medical examination without abnormal findings (principal) ==

== ENCOUNTER → 2023-03-04 12:36 | Outpatient (CLI) | payer BC, SELFPAY ==
--- NOTE | 2023-03-04 12:36 | MM_ITS ---
PROCEDURE INFORMATION: Exam: MG Bilateral Screening 3D Mammography Exam date and time: 03/04/2023 12:56 PM Age: 47 years old Clinical indication: Screening examination TECHNIQUE: Imaging protocol: Bilateral Screening tomosynthesis and 2D mammography including computer-aided detection (CAD) when performed. COMPARISON: 1. MG MM DIG MAMM DX UNILAT RT CAD 12/01/2021 1:08 PM 2. MG MM DIG SCREENING MAMM BI W/CAD 04/30/2021 8:16 AM FINDINGS: MAMMOGRAPHY: Breast composition: The breasts are heterogeneously dense, which may obscure small masses. Mass: None. Architectural distortion: None. Calcifications: No suspicious calcifications. Asymmetric density: None. Skin thickening: None. Axillary adenopathy: None. IMPRESSION: No mammographic evidence of malignancy. Annual screening is recommended unless otherwise clinically indicated. A ASSESSMENT: BI-RADS Category 1: Negative
== END ==
PROVIDERS: PCP Internal Medicine Adolescent Medicine; Visit Provider Obstetrics & Gynecology
DX: Z12.31 Encounter for screening mammogram for malignant neoplasm of breast (principal)
CPT/HCPCS: 77063; 77067

== ENCOUNTER → 2023-05-13 07:09 | Outpatient (CLI) | payer BC, SELFPAY ==
--- NOTE | 2023-05-13 07:13 | CT_ITS ---
FINAL REPORT TECHNIQUE: Axial images were obtained from the lung apex to the mid abdomen by computed tomography. This study was performed with techniques to keep radiation doses as low as reasonably achievable (ALARA). Individualized dose reduction techniques using automated exposure control or adjustment of mA and/or kV according to the patient's size were employed. CLINICAL HISTORY: CURRENT SMOKER smokes 1 pk per day x 20 yrs hx of cervical ca, family hx of lung ca FINDINGS: CHEST CT LOW DOSE CTDI vol (mGy): 2.90 DLP (mGy-cm): 107.07 There is no axillary adenopathy. There is no hilar or mediastinal adenopathy. The heart is normal in size. There is no pericardial or pleural effusion. There are multiple calcified granulomas. There is a 3 mm medial right upper lobe nodule well seen on image 21. There is a 2 mm lateral right lower lobe nodule well seen on image 51. There is a 3 mm nodule in the inferior lingula well seen on image 56. Limited images of the upper abdomen are unremarkable. IMPRESSION: Nodules as detailed above. Lung RADS category 2. Recommend 12 month follow-up low-dose chest CT. Reviewed, Interpreted and Dictated by Rufino Samuel III, MD Transcribed by Taya Wolfe Authenticated and [facility]
== END ==
PROVIDERS: PCP Internal Medicine Adolescent Medicine; Visit Provider Nurse Practitioner Family
DX: Z87.891 Personal history of nicotine dependence (principal); Z12.2 Encounter for screening for malignant neoplasm of respiratory organs
CPT/HCPCS: 71271

== ENCOUNTER → 2023-08-17 08:49 | Outpatient (POV) | payer BC, SELFPAY | PROVIDERS: PCP Internal Medicine Adolescent Medicine; Visit Provider Dermatology | DX: Z00.00 Encounter for general adult medical examination without abnormal findings (principal) ==

== ENCOUNTER 2024-03-17 08:22 | Outpatient (CLI) | payer BC, SELFPAY ==
--- NOTE | 2024-03-17 08:29 | MM_ITS ---
PROCEDURE INFORMATION: Exam: MG Bilateral Screening 3D Mammography Exam date and time: 03/17/2024 8:14 AM Age: 48 years old Clinical indication: Screening examination TECHNIQUE: Imaging protocol: Bilateral Screening tomosynthesis and 2D mammography including computer-aided detection (CAD) when performed. COMPARISON: 1. MG MM DIG SCREENING MAMM BI W/CAD 03/04/2023 12:56 PM 2. MG MM DIG MAMM DX UNILAT RT CAD 12/01/2021 1:08 PM FINDINGS: MAMMOGRAPHY: Breast composition: The breasts are heterogeneously dense, which may obscure small masses. Mass: None. Architectural distortion: None. Calcifications: No suspicious calcifications. Asymmetric density: None. Skin thickening: None. Axillary adenopathy: None. IMPRESSION: No mammographic evidence of malignancy. Annual screening is recommended unless otherwise clinically indicated. ASSESSMENT: BI-RADS Category 1: Negative
== END 2024-03-17 23:59 | disposition home or self-care (01) ==
LOC: RAD 08:23
PROVIDERS: PCP Internal Medicine Adolescent Medicine; Visit Provider Internal Medicine Adolescent Medicine
DX: Z12.31 Encounter for screening mammogram for malignant neoplasm of breast (principal)
CPT/HCPCS: 77063; 77067

== ENCOUNTER 2024-06-23 13:21 | Outpatient (CLI) | payer BC, SELFPAY ==
--- NOTE | 2024-06-23 13:33 | CT_ITS ---
FINAL REPORT TECHNIQUE: Thin section axial images were obtained from the lung apices to the upper abdomen by computed tomography. Reformatted images were obtained and reviewed. This study was performed with techniques to keep radiation doses al low as reasonably achievable (ALARA). Individualized dose reduction techniques using automated exposure control or adjustment of mA and/or kV according to the patient's size were employed. CLINICAL HISTORY: HX NICOTINE DEPENDENCE CURRENT SMOKER 1PPD X31 YEARS COMPARISON: 05/13/2023 FINDINGS: CHEST CT LOW DOSE CTDI vol (mGy): 2.90 DLP (mGy-cm): 97.16 There is no axillary adenopathy. There is no mediastinal or hilar mass or adenopathy. The heart is normal in size. There is no pericardial or pleural effusion. There are multiple calcified granulomas. Lung window images demonstrate stable pulmonary nodules including a 3 mm medial right upper lobe nodule on series 3 image 25, a 2 mm lateral right lower lobe nodule on series 3 image 52, a 3 mm inferior linear nodule on series 3 image 56, and a 4 mm nodule in the posterior left lower lobe on series 3 image 47. No new mass or pulmonary nodule identified. Limited images of the upper abdomen are unremarkable. IMPRESSION: Stable pulmonary nodules as described. Lung-RADS category 2. Recommend 12 month follow up low dose chest CT. Reviewed, Interpreted and Dictated by Rufino Samuel III, MD Transcribed by Brigid Graham Authenticated and [facility]
== END 2024-06-23 23:59 | disposition home or self-care (01) ==
LOC: RAD 13:21
PROVIDERS: PCP Nurse Practitioner Family; Visit Provider Nurse Practitioner Family
DX: Z87.891 Personal history of nicotine dependence (principal)
CPT/HCPCS: 71271

== ENCOUNTER 2024-06-30 09:51 | Outpatient (RCR) | payer BC, SELFPAY ==
--- NOTE | 2024-06-30 10:39 | HMH.OTOPEV ---
OT Inpatient Evaluation Rehab OT Outpatient Eval Start: 06/30/24 10:19 Freq: Status: Active Protocol: Document 06/30/24 10:19 RMARSHALL (Rec: 06/30/24 10:[address] [id number] E-signed By Linda Padilla, OT Outpatient Therapy Subjective History Subjective History Pt is a 49 y/o female who presents to OT evaluation for R shoulder pain. Pt is R hand dominant. Pt reports that the pain started ~6-7 months ago. Pt reports that the sensation is best described as pulling and tight . Pt reports having these sensations the most while sleeping and with certain positions of R arm. Pt reports having numbness and tingling in fingers at times. Pt also reports tenderness near the AC joint. 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 During manual evaluation, therapist noted palpable inflammation over AC joint. During AROM, pt experienced the most pain in extension and IR. Short term goals: 1. Pt will increase R shoulder flexion to 155 degrees in order to complete daily overhead tasks independently ~50% of the time . 2. Pt will increase R shoulder abduction to 160 degrees to complete upper body dressing independently ~50% of the time. 4. Pt will increase strength to 4/5 throughout right shoulder in order to complete heavier household tasks ( laundry, mopping, vacuuming) independently ~50% of the time . 5. Pt will verbalize decreased pain levels at worst in R shoulder to a 5/10 in order to complete daily ADLs independently ~50% of the time . 6. Pt will demonstrate improved endurance by completing right shoulder exercises for ~20 minutes prior to rest break in order to increase his tolerance for daily work activities. 7. Pt will demonstrate independence with HEP of AAROM exercises to increase overall functional use of right shoulder in daily activities ~ 75% of the time. 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 Pt will increase R shoulder flexion to 165 degrees in order to complete daily overhead tasks independently ~75% of the time . 2. Pt will increase R shoulder abduction to 165 degrees to complete upper body dressing independently ~75% of the time. 4. Pt will increase strength to 5/5 throughout right shoulder in order to complete heavier household tasks ( laundry, mopping, vacuuming) independently ~75% of the time . 5. Pt will verbalize decreased pain levels at worst in right shoulder to a 3/10 in order to complete daily ADLs independently ~75% of the time. 6. Pt will demonstrate improved endurance by completing right shoulder exercises for ~30 minutes prior to rest break in order to increase his tolerance for daily work activities. 7. Pt will demonstrate independence with HEP of Rotator cuff strengthening exercises to increase overall functional use of right shoulder for daily activities ~90% of the time. New diagnosis of cancer in past 12 No months? Chief Complaint Pain,Stiff Symptom Type Ache,Dull,Numbness,Tingling Symptoms Relieved By Rest/Positioning Symptoms Aggravated By Physical Activity,Lifting Prior Functional Limitations None Current Functional Limitations Reaching,Lifting,Housework, Dressing,Driving,Sleeping, Recreation Activity Symptom Description Intermittent,Activity Dependent Shoulder/Elbow Eval Shoulder Objective Measurements Shoulder ROM Right Shoulder Abduction Active Range of 155 Motion (degrees) Shoulder Flexion Active Range of Motion 145 (degrees) Query Text: Shoulder External Rotation Active Range 90 of Motion (degrees) Shoulder Internal Rotation Active Range 70 of Motion (degrees) Shoulder MMT Shoulder Abduction Strength Grade 4- Good- Shoulder Flexion Strength Grade 4- Good- Shoulder External Rotation Strength 4- Good- Grade Shoulder Internal Rotation Strength 4- Good- Grade Elbow Objective Measurements QuickDASH Activities Please rate your ability to do the following activities in the last week by selecting the number below the appropriate response. 1. Open a tight or new jar. No difficulty 2. Do heavy poultry scientist (e.g., wash No difficulty cueva, floors). 3. Carry a shopping bag or briefcase. Mild difficulty 4. Wash your back. Mild difficulty 5. Use a knife to cut food. No difficulty 6. Recreational activities in which you Moderate difficulty take some force or impact through your arm, shoulder, or hand (e.g., golf, hammering, tennis, etc.). 7. During the past week, to what extent Slightly has your arm, shoulder or hand problem interfered with your normal social activities with family, friends, neighbors or groups? 8. During the past week, were you Slightly limited limited in your work or other regular daily activites as a result of your arm, shoulder or hand problem? 9. Arm, shoulder or hand pain. Mild 10. Tingling (pins and needles) in your Moderate arm, shoulder or hand. 11. During the past week, how much No difficulty difficulty have you had sleeping because of the pain in your arm, shoulder or hand? Quick DASH 20 OT Outpatient Assessment Impairments Problems/Impairments Palpation Tenderness,Impaired Range of Motion,Impaired Strength,Impaired Endurance, Impaired Lifting,Impaired Dressing,Impaired Household Care,Impaired Work Activities, Subjective C/O Pain Prognosis Rehab Potential Good Clinical Impression Consistent with Diagnosis Yes Outpatient Therapy Plan of Care Treatment Plan May Include Therapeutic Exercise Including Home Yes Exercise Program Manual Therapy Techniques Yes Neuromuscular Re-education Yes Therapeutic Activities to Return to Yes Previous Functional/Work Level ADL/Self Care Education Yes Thermal Modalities Yes Electrical Stimulation Yes Ultrasound/Phonophoresis Yes Iontophoresis Yes Massage Yes Eval/Re-Eval Yes Frequency Times per week 2 Duration Number of Weeks 6 Addendums This patient is a candidate for social No or vocational rehab? Patient/Guardian verbally acknowledges Yes understanding of treatment program and consents to further treatment? Patient/Guardian verbally acknowledges Yes understanding of diagnosis, prognosis and goals for treatment? Eval Complexity OT Charge 91537 - Moderate Complexity PHYSICIAN CERTIFICATION: I certify the specified therapy services for Annelise Polk are required, authorized, and reviewed every 30 days.
== END 2024-06-30 23:59 | disposition home or self-care (01) ==
LOC: OT 09:51
PROVIDERS: Visit Provider Nurse Practitioner Family
DX: M25.511 Pain in right shoulder (principal)
CPT/HCPCS: 97166

== ENCOUNTER 2024-09-25 07:52 | Outpatient (CLI) | payer BC, SELFPAY ==
--- NOTE | 2024-09-25 07:56 | US_ITS ---
FINAL REPORT TECHNIQUE: Sonographic images of the thyroid were obtained. CLINICAL HISTORY: .dysphagia FINDINGS: THYROID ULTRASOUND The right thyroid gland measures 4.5 x 1.2 x 1.8 cm. The parenchyma shows normal echogenicity. There is a central region of relatively decreased echogenicity in the posterior aspect of the mid right lobe. This may represent a thyroid nodule which measures 1.9 x 0.8 cm. There is also a solid, hypoechoic 5 mm focus in the lower pole consistent with a TI-RADS 4 nodule. The left thyroid gland measures 4.0 x 1.3 x 1.4 cm. The parenchyma shows normal echogenicity. No dominant mass is seen. IMPRESSION: 1.9 cm vague region of relatively decreased echogenicity in the posterior right thyroid lobe. If this does represent a thyroid nodule, it would be consistent with a TI-RADS 4 nodule for which a biopsy would be recommended. Consider biopsy. Reviewed, Interpreted and Dictated by Doug Suero MD Transcribed by Mariam Mosley Authenticated and . [facility]
--- NOTE | 2024-09-25 07:57 | FL_ITS ---
FINAL REPORT CLINICAL HISTORY: DYSPHAGIA, ANTERIOR NECK PAIN 1498.12 dap 2.21 fluoro time FINDINGS: UPPER GI EXAM HISTORY: Dysphagia. PROCEDURE: The patient ingested barium. Effervescent crystals were also administered. Spot and overhead films were obtained. UGI: The esophagus is normal. There is a small sliding type hiatal hernia. There is no gastroesophageal reflux. Peristalsis is within normal limits The rugal fold pattern of the stomach is normal. The duodenal bulb is normal. A 13 mm barium tablet passes through the esophagus and into the stomach without delay. Fluoro time: 2 minutes 21 seconds DAP: 1498.12 uGy.m2 22 images were obtained. IMPRESSION: Small sliding-type hiatal hernia. Films reviewed, interpreted and dictated by Dr. Suero. Transcribed by Jason Garvin PA-C. Reviewed, Interpreted and Dictated by Doug Suero MD Transcribed by JEFF Gallardo Authenticated and [facility]
[2024-09-25] MEDS: E-Z-GASII EFFERVESCENT GRANULES;1PK 1 EACH PO (08:28)
[2024-09-25] MEDS: BARIUM SULFATE (E-Z-HD 340GM);135ML BOTTLE 135 ML PO (08:28)
[2024-09-25] MEDS: BARIUM SULFATE(E-Z-AC);750ML BOTTLE 750 ML PO (08:28)
== END 2024-09-25 23:59 | disposition home or self-care (01) ==
LOC: RAD 07:52
PROVIDERS: PCP Nurse Practitioner Family; Visit Provider Nurse Practitioner Family
DX: R13.10 Dysphagia, unspecified (principal); M54.2 Cervicalgia
CPT/HCPCS: 74246; 76536

== ENCOUNTER 2024-10-10 11:02 | Outpatient (CLI) | payer BC, SELFPAY ==
[2024-10-10 12:37] LABS: Free T4 (Free Thyroxine) 1.01 ng/dl (0.78-2.19)
[2024-10-11 08:14] LABS: Thyroid Peroxidase Antibodies <9 IU/mL (0-34)
[2024-10-14 08:59] LABS: Thyroid Stimulating Immunoglob <0.10 IU/L (0.00-0.55)
== END 2024-10-10 23:59 | disposition home or self-care (01) ==
LOC: LAB 11:03
PROVIDERS: PCP Nurse Practitioner Family; Visit Provider Nurse Practitioner
DX: E04.1 Nontoxic single thyroid nodule (principal)
CPT/HCPCS: 36415; 84439; 84443; 84445; 86376

== ENCOUNTER 2024-10-13 08:43 | Outpatient (CLI) | payer BC, SELFPAY | END 2024-10-13 23:59 | disposition home or self-care (01) | LOC: RAD 08:44 | PROVIDERS: PCP Nurse Practitioner Family; Visit Provider Nurse Practitioner | DX: E04.1 Nontoxic single thyroid nodule (principal) | CPT/HCPCS: 10005 ==

== ENCOUNTER 2024-11-21 07:01 | Outpatient (CLI) | payer BC, SELFPAY ==
--- NOTE | 2024-11-21 07:01 | CT_ITS ---
FINAL REPORT TECHNIQUE: Thin section axial CT with coronal reconstruction without IV contrast This study was performed with techniques to keep radiation doses as low as reasonably achievable, (ALARA). Individualized dose reduction techniques using automated exposure control or adjustment of mA and/or kV according to the patient''s size were employed. CLINICAL HISTORY: nasal hypertrophy FINDINGS: There is minimal focal mucosal thickening of the lateral wall of left maxillary sinus measuring 3 mm. There is minimal focal mucosal thickening of the right sphenoid sinus measuring 2 mm. Remaining paranasal sinuses are clear. There is nasal septal deviation to the right of 5 mm. This results in narrowing of the right nasal air passage. OMCs are clear. IMPRESSION: No evidence of acute sinusitis. Narrowed right nasal air passage secondary to nasal septal deviation. Reviewed, Interpreted and Dictated by Brenna Lopez MD Transcribed by Siri Dawn Authenticated and [facility]
--- NOTE | 2024-11-21 07:01 | CT_ITS ---
FINAL REPORT TECHNIQUE: Thin section axial CT images with coronal and sagittal reformats were performed through the neck. This study was performed with techniques to keep radiation doses as low as reasonably achievable (ALARA). Individualized dose reduction techniques using automated exposure control or adjustment of mA and/or kV according to the patient''s size were employed. CLINICAL HISTORY: left sided lymphdenopathy FINDINGS: Assessment for soft tissue mass or adenopathy is less sensitive without intravenous contrast. Salivary glands are normal. There are no enlarged lymph nodes. Larynx is unremarkable. Thyroid is normal in size. Lung apices are clear. IMPRESSION: No enlarged lymph nodes or obvious soft tissue mass. Reviewed, Interpreted and Dictated by Brenna Lopez MD Transcribed by Siri Dawn Authenticated and [facility]
== END 2024-11-21 23:59 | disposition home or self-care (01) ==
LOC: RAD 07:01
PROVIDERS: PCP Nurse Practitioner Family; Visit Provider Nurse Practitioner
DX: J34.89 Other specified disorders of nose and nasal sinuses (principal); R59.1 Generalized enlarged lymph nodes
CPT/HCPCS: 70486; 70490

== ENCOUNTER 2024-12-29 11:58 | Outpatient (CLI) | payer BC, SELFPAY ==
--- NOTE | 2024-12-29 12:25 | ECG_ITS ---
APPROVED REPORT Exam: Resting ECG HR:91 bpm ECG Measurements Heart Rate 91 AXES CO 174 P 64 QRSd 90 QRS 22 QT 368 T 53 QTc 417 Conclusion SINUS RHYTHM Normal ECG UNCONFIRMED REPORT Electronically signed by : Shahram Gupta MD 01/01/2025 08:29:39
[2024-12-29 12:28] VITALS: BMI 27.1
[2024-12-29 12:36] LABS: Basophils # 0.1 K/mm3 (0-0.2); Basophils % 0.7 % (0.1-2.0); Eosinophils # 0.2 Kmm3 (0.0-0.4); Eosinophils % 3.2 % (0.1-12.0); Hematocrit 41.4 % (37.0-47.0); Hemoglobin 13.9 g/dL (12.2-16.2); Lymphocytes # 2.2 K/mm3 (0.7-4.5); Lymphocytes % 30.2 % (10-50); Mean Corpuscular HGB Conc 33.6 g/dL (31.8-35.4); Mean Corpuscular Hemoglobin 30.2 pg (27.0-31.2); Mean Platelet Volume 9.7 fl (7.4-10.4); Monocytes # 0.6 K/mm3 (0.1-1.0); Monocytes % 7.6 % (1.7-9.3); Neutrophils # 4.3 K/mm3 (1.8-7.8); Nucleated Red Blood Cells # 0 10^3/uL; Nucleated Red Blood Cells % 0 %; Platelet Count 273 K/mm3 (142-424); Red Cell Distribution Width 12.1 % (11.5-17.5); Red Cell Distribution Width-SD 40.2 fL; White Blood Count 7.4 K/mm3 (4.8-10.8)
[2024-12-29 12:42] LABS: Chloride 109 mmol/L (98-107); Potassium 3.6 mmoL/L (3.5-5.1); Sodium 141 mmol/L (136-145)
[2024-12-29 12:45] LABS: Anion Gap 7.6 mEq/L (5-15); Blood Urea Nitrogen 10 mg/dl (7-17); Calcium 9.2 mg/dl (8.4-10.2); Carbon Dioxide 28 mmol/L (22.0-30.0); Creatinine Clearance Estimated 73 mL/min (50-200); Estimated Glomerular Filt Rate 52 ml/min (>60); GFR (African American) 63 ML/MIN (>60); Glucose 99 mg/dl (74-100)
== END 2024-12-29 23:59 | disposition home or self-care (01) ==
LOC: PREOP 11:58
PROVIDERS: PCP Nurse Practitioner Family; Visit Provider Otolaryngology
DX: Z01.810 Encounter for preprocedural cardiovascular examination (principal)
CPT/HCPCS: 80048; 85025; 93005

== ENCOUNTER 2025-01-09 06:02 | Day surgery (SDC) | payer BC, SELFPAY ==
[2025-01-01 13:31] VITALS: BMI 27.1
[2025-01-09] VITALS (10 sets, daily range): BP systolic 123–164; BP diastolic 73–100; PULSE 75–81; RESP 16–18; TEMP 36.2–36.7; O2SAT 94–100
[2025-01-09] MEDS: LACTATED RINGERS 1000ML 1,000 ML 25 ML IV (07:28)
--- NOTE | 2025-01-09 08:54 | P.PNANES_ITS ---
[facility] Disclaimer: The information contained in this section may have been updated after the patient was seen, as this information can be updated by other users. Medical History History of paroxysmal supraventricular tachycardia Dizziness Sinus pain Lymphadenopathy Nasal turbinate hypertrophy Nasal hypertrophy Difficulty swallowing Thyroid fullness Family history of breast cancer Rheumatoid arthritis Kidney stone Hyperlipidemia History of gastroesophageal reflux (GERD) Migraine Surgical History History of extraction of renal calculus Hx of tonsillectomy Hx of dilation and curettage History of cone biopsy of cervix History of cardiac radiofrequency ablation History of hysterectomy Family History Other Family history of cancer Family history of diabetes mellitus type II Family history of hyperlipidemia Family history of hypertension Social History Smoking Status: Current every day smoker tobacco type: cigarettes packs per day: 1 alcohol intake: never counseling provided: none substance use type: denies use and other details: [employer] current occupational status: employed Travel in the last 8 weeks?: None household members: spouse housing: house lives independently: Yes marital status: education level: college caffeine: Yes special cesilia needs: No agree to transfusion: No do you feel safe at home: Yes victim of physical abuse: No victim of emotional abuse: No victim of sexual abuse: No would you like helpful sources: No Have you lived/traveled outside [place] in past 30 days?: No Contact w/someone who lives/traveled outside [place] past 30 days?: No Exposure to someone with infectious disease in past 14 days?: No Do you have a fever (greater than 100.4 F or 38 C)?: No Have you tested positive for COVID-19?: No Exposed to someone with COVID-19 in past 14 days?: No Do you have a sore throat?: No Do you have a cough?: No Do you have any weakness?: No Do you have any diarrhea?: No Are you experiencing any unusual bleeding?: No Do you have any muscle aches/pain?: No Do you have any abdominal pain?: No Are you experiencing loss of taste or smell?: No [facility] Anesthesia Checklist Patient Identification Patient Identification: Arm Band and Verbal (Name & ) Structural Data Admitted From: Home Planned Operative Procedure/s: Septoplasty Consent for Planned Operative Procedure(s) Verified: Yes Verified Documents: Surgical Consent NPO Status Verified Time NPO: 00:00 Additional verifications Patient : No Anesthesia Reactions: No Hx Blood Transfusions: No Blood Transfusion Reaction: No Cephalosporin Allergy: No Airway Assessment Mallampati Score:: Class II C-Spine Mobility Assessed: Yes TMJ Mobility Assessed: Yes Dentition: Good Dentition Neurological Assessment Level of Consciousness: Awake, Alert and Appropriate Hx Seizures: No Numbness or tingling in extremities: Yes (RUE occasionally ) Anesthesia Plan Anesthesia Risk discussed: Yes Anesthesia Plan: Verified ASA Class: II Anesthesia Type: General
[2025-01-09] MEDS: OXYMETAZOLINE NASAL SPRAY 0.05% 15ML 15 ML NS (09:30)
[2025-01-09] MEDS: LIDOCAINE 1% W/EPI 1:100,000 20ML VIAL 20 ML (09:33)
[2025-01-09] MEDS: CEFAZOLIN 2GM VIAL 2 GM (09:35)
--- NOTE | 2025-01-09 10:15 | P.OP_ITS ---
Date of procedure: 01/09/25 Pre-op Diagnosis:: Deviated septum, turbinate hypertrophy Post-op Diagnosis:: Deviated septum, turbinate hypertrophy Procedure performed:: Septoplasty, submucous resection of inferior turbinates bilaterally, therapeutic outfracture of the bone of the inferior turbinates bilaterally Surgeon:: Thong Carolina MD DROP FORGER HELPER:: Other Anesthesia: GETA Estimated blood loss (mL): 50 Operative findings:: Severely deviated septum to the right, turbinate hypertrophy bilaterally worse on the left Operative note:: The patient was brought to the operating room and after adequate general anesthesia the nose was draped in the usual sterile fashion and 1% lidocaine with epinephrine used to local infiltrate the septum and inferior turbinates. A right hemitransfixion incision was then made and mucoperichondrial flaps elevated off the bony cartilaginous septum bilaterally. The cartilaginous septum was then from the bony septum and mobilized and brought back over the midline maxillary crest. A large bony spur posteriorly on the right side from the vomer was resected and then the remaining bony septum fractured and brought back to midline. The mucosal flaps were then returned to anatomic position and held in place with a 4-0 plain gut horizontal mattress suture and hemitransfixion incision was closed with 5-0 chromic. Using a 0 degree sinus endoscope, the inferior turbinates were visualized and then submucosal resection of the redundant soft tissue of the inferior turbinates was performed with a microdebrider and turbinate blade through an anterior stab incision. This was done bilaterally. The bone of the inferior turbinates was then outfractured with a Bovie elevator. Cuenca splints were then placed on the septum and secured to the columella using 3-0 nylon and the procedure concluded. All counts correct and blood loss was less than 50 mL and patient was sent to recovery in stable condition Condition: stable Disposition: PACU Complications:: No complication
--- NOTE | 2025-01-09 10:22 | EXP.ANES.I ---
[facility] Anesthesia Record Part I Anesthesia Record I Intake, IV Amount: 500 Hydration: Adequate Estimated blood loss (mL): 0 Urine output (mL): 0 Blood Pressure: 155/86 SaO2: 97 Pulse Rate: 78 Airway Patency: Patent Respiratory Rate: 16 Temperature: 97.1 F Patient is:: Awake and Stable Stable to PACU at:: 10:27
[2025-01-09] MEDS: MORPHINE 2MG/ML SYRINGE 2 MG IV ×2 (10:30→10:35)
--- NOTE | 2025-01-09 13:40 | P.PNANES_ITS ---
[facility] Anesthesia Record Part II Anesthesia Record Part II Discharge Time: 10:47 Destination: Surgical Day Care (OP Surgery) PACU nurse assessment reviewed?: Yes Patient Condition:: Good Anesthesia Complications:: None Swallowing reflex intact?: Yes Airway Patency: Patent Cyanosis?: No Blood Pressure: 140/91 SaO2: 98 Respiratory Rate: 16 Pulse Rate: 75 Temperature: 97.5 F Mental Status: Alert & Oriented Pain level:: 4 Nausea and/or vomitting:: None Intake, IV Amount: 0 Hydration: Adequate
== END 2025-01-09 11:20 | disposition home or self-care (01) ==
PROVIDERS: PCP Internal Medicine Adolescent Medicine; Visit Provider Otolaryngology
PROC: (CPT 30520; principal; 2025-01-09 08:30)
DX: J34.2 Deviated nasal septum (principal); J34.3 Hypertrophy of nasal turbinates; Z72.0 Tobacco use
CPT/HCPCS: 30140; 30520; J3490; J0690; J1100; J1200; J2250; J2270; J2405; J3010; J7120

== ENCOUNTER 2025-02-22 08:30 | Day surgery (SDC) | payer BC, SELFPAY ==
[2025-02-21 13:36] VITALS: BMI 27.4
[2025-02-22] MEDS: LACTATED RINGERS 1000ML 1,000 ML 50 ML IV (09:28)
[2025-02-22 09:29] VITALS: BP 117/64; PULSE 85; RESP 18; TEMP 36.3; O2SAT 99
--- NOTE | 2025-02-22 09:49 | P.PNANES_ITS ---
[facility] Disclaimer: The information contained in this section may have been updated after the patient was seen, as this information can be updated by other users. Medical History History of paroxysmal supraventricular tachycardia Dizziness Sinus pain Lymphadenopathy Nasal turbinate hypertrophy Nasal hypertrophy Difficulty swallowing Thyroid fullness Family history of breast cancer paternal grandmother maternal aunts x 2 Rheumatoid arthritis Kidney stone Hyperlipidemia History of gastroesophageal reflux (GERD) Migraine Surgical History Status post nasal septoplasty History of extraction of renal calculus Hx of tonsillectomy Hx of dilation and curettage History of cone biopsy of cervix History of cardiac radiofrequency ablation History of hysterectomy AARON, BSO [id number] Family History Other Family history of cancer Family history of diabetes mellitus type II Family history of hyperlipidemia Family history of hypertension Social History Smoking Status: Current every day smoker tobacco type: cigarettes packs per day: 1 alcohol intake: never counseling provided: none substance use type: denies use and other details: [employer] current occupational status: employed Travel in the last 8 weeks?: None household members: spouse housing: house lives independently: Yes marital status: education level: college caffeine: Yes special cesilia needs: No agree to transfusion: No do you feel safe at home: Yes victim of physical abuse: No victim of emotional abuse: No victim of sexual abuse: No would you like helpful sources: No Have you lived/traveled outside US in past 30 days?: No Contact w/someone who lives/traveled outside US past 30 days?: No Exposure to someone with infectious disease in past 14 days?: No Do you have a fever (greater than 100.4 F or 38 C)?: No Have you tested positive for COVID-19?: No Exposed to someone with COVID-19 in past 14 days?: No Do you have a sore throat?: No Do you have a cough?: No Do you have any weakness?: No Do you have any diarrhea?: No Are you experiencing any unusual bleeding?: No Do you have any muscle aches/pain?: No Do you have any abdominal pain?: No Are you experiencing loss of taste or smell?: No [facility] Anesthesia Checklist Patient Identification Patient Identification: Verbal (Name & ) Structural Data Admitted From: Home Planned Operative Procedure/s: egd Consent for Planned Operative Procedure(s) Verified: Yes NPO Status Verified Time NPO: 00:00 Additional verifications Anesthesia Reactions: No Hx Blood Transfusions: No Blood Transfusion Reaction: No Airway Assessment Mallampati Score:: Class II C-Spine Mobility Assessed: Yes TMJ Mobility Assessed: Yes Dentition: Good Dentition Neurological Assessment Level of Consciousness: Awake, Alert and Appropriate Anesthesia Plan Anesthesia Risk discussed: Yes Anesthesia Plan: Verified ASA Class: II Anesthesia Type: MAC
--- NOTE | 2025-02-22 10:14 | EXP.HP ---
History of Present Illness *Admission Date: 02/22/25 *Reason for visit:: Dysphagia *History of present illness: Mrs. Polk is a 49-year-old female who has had progressively worsening swallowing difficulty with choking. She has intermittent marked globus sensation and feels as if something is hung in her throat with a lump in her throat. This is midline but occasionally can be left-sided. She has had longstanding GERD but this is primarily manifested by chest pain with very little reflux but some pyrosis. She does report frequent clearance of the throat and a lot of sinus drainage. She has seen ENT and laryngoscopy showed evidence of potential LPR. The patient also had a modified barium swallow and upper GI series in September 2024. This did show a very small sliding-type hiatal hernia. The esophagus was otherwise normal. There was no barium reflux. A 13 mm barium tablet passed through the esophagus. She also had a thyroid ultrasound and was sent for thyroid biopsy. The biopsy was benign with some goiter tissue. The patient also had a CT scan of the chest that showed stable pulmonary nodules. The patient does report dyspepsia with intermittent epigastric abdominal discomfort. She does get some bloating and intermittent belching. She does note chronic constipation and is on stool softeners in the evening. She does state that this allows her to be mostly regular. She does have some excessive wiping. The patient did have panendoscopy with Dr. Moncho Stewart in October 2022. At that time, she had a normal-appearing esophagus and GE junction with a small hiatal hernia. She had mild gastritis. The esophagus was not dilated. Pathology at that time showed reflux esophagitis without Morales's. The gastric biopsy was normal with no gastritis or H. pylori. The duodenal biopsies showed some chronic peptic duodenitis. The patient also had a colonoscopy and had 3 polyps (hyperplastic polyps x 3) removed. The patient has been on Nexium 5 times weekly and Pepcid. This has not improved her symptoms. [facility] Disclaimer: The information contained in this section may have been updated after the patient was seen, as this information can be updated by other users. Medical History History of paroxysmal supraventricular tachycardia Dizziness Sinus pain Lymphadenopathy Nasal turbinate hypertrophy Nasal hypertrophy Difficulty swallowing Thyroid fullness Family history of breast cancer paternal grandmother maternal aunts x 2 Rheumatoid arthritis Kidney stone Hyperlipidemia History of gastroesophageal reflux (GERD) Migraine Surgical History Status post nasal septoplasty History of extraction of renal calculus Hx of tonsillectomy Hx of dilation and curettage History of cone biopsy of cervix History of cardiac radiofrequency ablation History of hysterectomy AARON, BSO [id number] Family History Other Family history of cancer Family history of diabetes mellitus type II Family history of hyperlipidemia Family history of hypertension Social History Smoking Status: Current every day smoker tobacco type: cigarettes packs per day: 1 alcohol intake: never counseling provided: none substance use type: denies use and other details: [employer] current occupational status: employed Travel in the last 8 weeks?: None household members: spouse housing: house lives independently: Yes marital status: education level: college caffeine: Yes special cesilia needs: No agree to transfusion: No do you feel safe at home: Yes victim of physical abuse: No victim of emotional abuse: No victim of sexual abuse: No would you like helpful sources: No Have you lived/traveled outside US in past 30 days?: No Contact w/someone who lives/traveled outside US past 30 days?: No Exposure to someone with infectious disease in past 14 days?: No Do you have a fever (greater than 100.4 F or 38 C)?: No Have you tested positive for COVID-19?: No Exposed to someone with COVID-19 in past 14 days?: No Do you have a sore throat?: No Do you have a cough?: No Do you have any weakness?: No Do you have any diarrhea?: No Are you experiencing any unusual bleeding?: No Do you have any muscle aches/pain?: No Do you have any abdominal pain?: No Are you experiencing loss of taste or smell?: No Other Medical History Have you received the Flu Vaccine for this season: Yes Have you received the Pneumonia Vaccine: No Meds Home Medications and Allergies Home Medications ?Medication ?Instructions ?Recorded ?Confirmed ?Type cholecalciferol (vitamin D3) 25 1,000 unit PO ONCE Supplement 09/08/17 02/21/25 History mcg (1,000 unit) capsule esomeprazole magnesium 20 mg 20 mg PO QDAY GERD 09/08/17 02/21/25 History capsule,delayed release (Nexium 24HR) amitriptyline 25 mg tablet 25 mg PO DAILY Depression 01/25/20 02/21/25 History sumatriptan succinate 50 mg tablet 50 mg PO DAILY Depression 01/25/20 02/21/25 History (Imitrex) atorvastatin 40 mg tablet 40 mg PO DAILY choslesterol 01/24/21 02/21/25 History hydroxychloroquine 200 mg tablet 200 mg PO DAILY Rheumatoid 01/24/21 02/21/25 History arthritis rimegepant 75 mg disintegrating 75 mg PO NEEDED PRN migraines 10/14/22 02/21/25 History tablet (Nurtec ODT) estradiol 0.01% (0.1 mg/gram) 1 g vaginal .twice weekly #42.5 10/02/24 02/21/25 Rx vaginal cream grams biotin 1,000 mcg chewable tablet 1,000 mcg PO DAILY 10/12/24 02/21/25 History cholecalciferol (vitamin D3) 50 50 mcg PO DAILY 12/06/24 02/21/25 History mcg (2,000 unit) capsule omega 2-eur-sda-fish oil 60 mg-90 1 cap PO DAILY 12/06/24 02/21/25 History mg-500 mg capsule (Fish Oil) calcium carbonate 300 mg PO DAILY 12/29/24 02/21/25 History magnesium 200 mg tablet 400 mg PO DAILY 12/29/24 02/21/25 History cephalexin 500 mg capsule 500 mg PO TID #30 caps 01/09/25 02/21/25 Rx hydrocodone 7.5 mg-acetaminophen 1 tab PO Q6H PRN pain 4 days #14 01/09/25 02/21/25 Rx 325 mg tablet tabs ondansetron 4 mg disintegrating 4 mg PO Q6H PRN nausea and 01/09/25 02/21/25 Rx tablet vomiting 7 days #20 tabs New Prescriptions to Start Prescriptions: Allergies Allergy/AdvReac Type Severity Reaction Status Date / Time No Known Allergies Allergy Verified 02/22/25 09:29 Exam Data for Last 24 hours Vital signs and Labs for Last 24 Hours: Temp Pulse Resp BP Pulse Ox O2 Del Method 97.4 F L 85 18 117/64 99 Room Air 02/22/25 09:29 02/22/25 09:29 02/22/25 09:29 02/22/25 09:29 02/22/25 09:29 02/22/25 09:29 I & O for Last 24 hours: Intake & Output 02/19/25 02/20/25 02/21/25 02/22/25 23:59 23:59 23:59 23:59 Weight 170 lb *Routine HEENT Exam Head: Present normocephalic Eye: Present EOMI and PERRL ENT: Present mucous membranes moist *Routine Neck Exam Neck: Present supple *Routine Respiratory Exam Respiratory: Present CTA bilaterally *Routine Cardiovascular Exam Cardiovascular: Present RRR *Routine Abdominal Exam Abdominal: Present soft and normoactive bowel sounds; Absent tenderness *Routine Rectal Exam Rectal:: deferred *Routine Genitalia Exam Genitalia:: deferred *Routine Extremities Exam Extremities: Absent cyanosis, clubbing or edema *Routine Skin Exam Skin: Present warm; Absent rash *Routine Neurological Exam Neurological: Present alert and oriented X3 Assessment and Plan *Assessment and plan (1) Globus sensation: Status: Acute Category: Medical Code(s): R09.A2 - Foreign body sensation, throat (2) Dysphagia: Status: Acute Category: Medical Code(s): R13.10 - Dysphagia, unspecified Plan A/P: 1. Dysphagia and globus sensation is the preprocedural diagnosis. The patient will be anesthetized/sedated using MAC sedation. The patient has been seen and examined. Cardiac and lung assessment prior to the examination is stable. Proceed with planned EGD with dilation and assessment for etiology.
--- NOTE | 2025-02-22 10:16 | HMH.PROCNOTE ---
[facility] Procedure Note Date: 02/22/25 Time: 10:37 Procedure Note:: Upper Endoscopy Procedure Report: Esophagogastroduodenoscopy with cold biopsies and TTS balloon dilation Endoscopost: Ishaan Goldstein II, MD Referring Physician: JANICE Simons Date of Procedure: February 22, 2025 Equipment: Olympus GIF 190 standard upper endoscope Sedation: MAC sedation Indications: Mrs. Polk is a 49-year-old female who is here for diagnostic upper endoscopy. She has had progressively worsening swallowing difficulty with choking that is now improving after using Nexium and fiber bowel regimen (combined MiraLAX plus Citrucel). She has intermittent marked globus sensation and feels as if something is hung in her throat with a lump in her throat. This is midline but occasionally can be left-sided. She has had longstanding GERD but this is primarily manifested by chest pain with very little reflux but some pyrosis. She had reported frequent clearance of the throat and a lot of sinus drainage. She has seen ENT and laryngoscopy showed evidence of potential LPR. The patient also had a modified barium swallow and upper GI series in September 2024. This did show a very small sliding-type hiatal hernia. The esophagus was otherwise normal. There was no barium reflux. A 13 mm barium tablet passed through the esophagus. She also had a thyroid ultrasound and was sent for thyroid biopsy. The biopsy was benign with some goiter tissue. The patient also had a CT scan of the chest that showed stable pulmonary nodules. The patient does report dyspepsia with intermittent epigastric abdominal discomfort. This has also improved. She was getting some bloating and intermittent belching. She does note chronic constipation and is on stool softeners in the evening. Again, this has improved with the MiraLAX and Citrucel. The patient did have panendoscopy with Dr. Moncho Stewart in October 2022. At that time, she had a normal-appearing esophagus and GE junction with a small hiatal hernia. She had mild gastritis. The esophagus was not dilated. Pathology at that time showed reflux esophagitis without Morales's. The gastric biopsy was normal with no gastritis or H. pylori. The duodenal biopsies showed some chronic peptic duodenitis. The patient also had a colonoscopy and had 3 polyps (hyperplastic polyps x 3) removed. The patient had been on Nexium but not daily and Pepcid. Now that she is on Nexium daily and fiber bowel regimen (MiraLAX plus Citrucel) she has improved. Procedure: Prior to the procedure, a history and physical exam was performed, and patient's medications and allergies were reviewed. The risks, benefits and alternatives of the sedation and procedure were discussed with the patient. All questions were answered and informed consent was obtained. The patient was brought to the procedure room. Patient identification and proposed procedure were verified by the physician and the nurse. The patient was placed in a left lateral decubitus position and the scope was passed under direct vision. Throughout the procedure, the patient's blood pressure, pulse, and oxygen saturations were monitored continuously. The upper GI endoscopy was accomplished without difficulty. The patient tolerated the procedure well. Findings: The scope was passed directly into the upper esophagus and advanced to the fourth portion of duodenum and proximal jejunum. A cold biopsy was taken from the proximal jejunum for disaccharidase assay. The proximal jejunum, post bulbar duodenum, ampulla and duodenal bulb were normal with normal mucosa and conniventes. The scope was withdrawn through a normal duodenal bulb and pylorus into the stomach. There was some mild linear antral reactive gastropathy and very mild chronic gastritis of the proximal stomach. Upon retroflexion there was no hiatal hernia. The scope was then withdrawn into the esophagus. There was a serrated Z-line and biopsies were taken from the GE junction. There was no evidence of reflux esophagitis or Morales's. There was no corrugation, furrowing or esophageal strictures. There was no proximal esophageal inlet patch. There were some tertiary contractions and evidence of mild esophageal dysmotility. The entire esophagus was dilated to 60 Moldovan/20 mm with increased resistance at the cricopharyngeus/cricopharyngeal spasm. The remainder of the esophageal mucosa was normal. Impression: 1. Cricopharyngeal spasm status post dilation to 20 mm 2. Nonerosive GERD with mild esophageal dysmotility 3. Mild linear antral reactive gastropathy and mild chronic gastritis Plan: I will follow-up the biopsies. The patient's symptoms of globus sensation are related to the cricopharyngeal spasm. This has improved with Nexium and the fiber bowel regimen (MiraLAX plus Citrucel). I would recommend that she continue these on a maintenance basis. I will discuss the findings with the patient and family.
[2025-02-22 10:39] VITALS: BP 127/73; PULSE 83; RESP 18; TEMP 36.1; O2SAT 97
[2025-02-22 10:49] VITALS: BP 121/75; PULSE 78; RESP 16; O2SAT 99
[2025-02-22 11:38] VITALS: BP 125/69; PULSE 73; RESP 16; O2SAT 99
[2025-02-22 11:39] VITALS: BP 126/79; BP 129/70; PULSE 67; PULSE 75; RESP 18; O2SAT 100
[2025-02-22 11:53] VITALS: BP 120/70; PULSE 69; RESP 16; TEMP 36.2; O2SAT 100
[2025-02-28 15:20] LABS: Disclaimer Notes (.); Interpretation Notes (.); Lactase 59.64 (>/= 14.0); Maltase 234.72 (>/= 110.0); Palatinase 15.43 (>/= 8.5); Reference Notes (.); Sucrase 55.37 (>/= 25.0)
== END 2025-02-22 11:53 | disposition home or self-care (01) ==
PROVIDERS: PCP Nurse Practitioner Family; Visit Provider Internal Medicine Gastroenterology
PROC: 0DJ08ZZ Inspection of Upper Intestinal Tract, Via Natural or Artificial Opening Endoscopic (ICD-10-PCS; CPT 43239; principal; 2025-02-22 10:00)
DX: K21.9 Gastro-esophageal reflux disease without esophagitis (principal); K29.50 Unspecified chronic gastritis without bleeding; K31.89 Other diseases of stomach and duodenum; F17.200 Nicotine dependence, unspecified, uncomplicated; Z79.899 Other long term (current) drug therapy; K22.4 Dyskinesia of esophagus; Z80.3 Family history of malignant neoplasm of breast; M06.9 Rheumatoid arthritis, unspecified; E78.5 Hyperlipidemia, unspecified; G43.909 Migraine, unspecified, not intractable, without status migrainosus; Z90.710 Acquired absence of both cervix and uterus; F17.210 Nicotine dependence, cigarettes, uncomplicated; Z79.890 Hormone replacement therapy
CPT/HCPCS: 43239; 43249; 82657; C1726; J2003; J2704; J7120

== ENCOUNTER 2025-04-19 10:39 | Outpatient (CLI) | payer BC, SELFPAY ==
--- OUTSIDE RECORDS SUMMARY | 2025-04-19 10:45 | XMS_ITS | Referral Summary ---
Author Organization [employer] ([place], [place], [place], [place]) Address [address] [place] [address] Care Team Providers Care Financial Analyst Intern Name Role Phone Unavailable Primary Care Provider Unavailabl e Social History Tobacco Use Types Packs/Day Years Used Date Smoking Tobacco: Never Assessed Comments Unknown Sex and Gender Information Value Date Recorded Sex Assigned at Not on file Legal Sex Female 2:25 PM CDT Gender Identity Not on file Sexual Orientation Not on file Plan of Treatment Not on file
--- OUTSIDE RECORDS SUMMARY | 2025-04-19 10:45 | XMS_ITS | Clinical Summary ---
Author Organization [employer] ([place], [place], [place], [place]) Address [address] [place] [address] Care Team Providers Care Wardrobe Custodian Name Role Phone Unavailable Primary Care Provider [...]
--- OUTSIDE RECORDS SUMMARY | 2025-04-19 10:45 | XMS_ITS | Clinical Summary ---
Author Organization Healthcare Address [address] [place] [address] Care Team Providers Care Professor Of Social Work Name Role Phone Shahram Gupta MD Primary Care Provider + [phone] Family History Medical History Relation Name Comments Arthritis Father Cardiac disorder Father Diabetes Father Hypertension Father Other cancer Father Stomach cancer Maternal Grandmother FH: s tomach cancer Arthritis Mother Cardiac disorder Mother Diabetes Mother Hypertension Mother Other cancer Mother Pancreatic cancer Mother FH: pancre atic cancer Breast cancer Other FH: breast can cer Breast cancer Paternal Grandmother FH: br east cancer Relation Name Status Comments Father Maternal Grandmother Mother Other Paternal Grandmother Social History Tobacco Use Types Packs/Day Years Used Date Smoking Tobacco: Every Day Alcohol Use Standard Drinks/Week Comments Yes 0 (1 standard drink = 0.6 oz pure alcohol) Alcoholic Drinks/day: Minimum alcohol consumption Comments Unknown Sex and Gender Information Value Date Recorded Sex Assigned at Not on file Legal Sex Female 5:55 PM EDT Gender Identity Not on file Sexual Orientation Not on file Last Filed Vital Signs Vital Sign Reading Time Taken Comments Blood Pressure - - Pulse - - Temperature - - Respiratory Rate - - Oxygen Saturation - - Inhaled Oxygen Concentration - - Weight 75.3 kg (166 lb 0.1 oz) 12/03/2016 8:56 A M EDT Height 167.6 cm (5' 6 ) 07/07/2016 3:25 PM EDT Body Mass Index 26.79 07/07/2016 3:25 PM EDT Plan of Treatment Not on file Care Teams Professor Of Social Work Relationship Specialty Start Date End Date Shahram Gupta MD [address] [place] [address] PCP - General 01/17/21
--- NOTE | 2025-04-19 11:00 | MM_ITS ---
PROCEDURE INFORMATION: Exam: MG Bilateral Screening 3D Mammography Exam date and time: 04/19/2025 10:52 AM Age: 49 years old Clinical indication: Screening exam. TECHNIQUE: Imaging protocol: Bilateral Screening tomosynthesis and 2D mammography including computer-aided detection (CAD) when performed. COMPARISON: MG MM DIG SCREENING MAMM BI W/CAD 03/17/2024 8:14 AM FINDINGS: MAMMOGRAPHY: Breast composition: The breasts are heterogeneously dense, which may obscure small masses. Mass: No suspicious masses. Architectural distortion: None. Calcifications: No suspicious calcifications. Asymmetric density: None. Skin thickening: None. Axillary adenopathy: None. IMPRESSION: No mammographic evidence of malignancy. Annual screening is recommended unless otherwise clinically indicated. ASSESSMENT: BI-RADS Category 1: Negative.
== END 2025-04-19 23:59 | disposition home or self-care (01) ==
LOC: RAD 10:40
PROVIDERS: PCP Nurse Practitioner Family; Visit Provider Obstetrics & Gynecology
DX: Z12.31 Encounter for screening mammogram for malignant neoplasm of breast (principal); R92.333 Mammographic heterogeneous density, bilateral breasts
CPT/HCPCS: 77063; 77067

== ENCOUNTER 2025-07-18 14:37 | Outpatient (CLI) | payer BC, SELFPAY ==
--- NOTE | 2025-07-18 14:38 | CT_ITS ---
FINAL REPORT CLINICAL HISTORY: HX OF TOBACCO current smoker 1ppd x 32 years COMPARISON: 06/23/2024 FINDINGS: CT CHEST LOW DOSE SCREENING HISTORY: Screening exam for lung cancer. 50-year-old female, current smoker, 64-[id number]-snir history. DOSE: CTDI vol: 2.90 mGy, DLP: 107.33 mGy*cm TECHNIQUE: Axial CT without IV contrast administration using low dose protocol. This study was performed with techniques to keep radiation doses as low as reasonably achievable, (ALARA). Individualized dose reduction techniques using automated exposure control or adjustment of mA and/or kV according to the patient's size were employed. No acute lung disease is present. There is a 3 mm right lower lobe nodule, best seen on image #63 of series 4, stable. There is a 4 mm left lower lobe nodule adjacent to a larger calcified granuloma, best seen on image #52 of series 4, stable. A 4 mm oval right lower lobe nodule is noted, image 47 of series 4, stable. There is a 4 mm left lower lobe stable nodule best seen on image #52 of series 4. No new nodules are identified. Multiple calcified granulomas are noted as well. No pleural or pericardial effusion is seen. No adenopathy or mass lesion is present. IMPRESSION: Stable 4 mm or smaller nodules are present bilaterally, without new nodules identified. LUNG RADS CATEGORY 2 RECOMMENDATION: 12 month LDCT follow up Reviewed, Interpreted and Dictated by Brenna Lopez MD Transcribed by Laura Mathis Authenticated and [facility]
--- OUTSIDE RECORDS SUMMARY | 2025-07-18 14:39 | XMS_ITS | Data Portability ---
Author Organization [facility], [facility] [place] [facility] Address [address] [place] [address] Care Team Providers Care Management Architect Name Role Phone RICARDOBRANT PEREZ Primary Care Provider GOOD MCKEON Luggage Attendant Assessment No assessment recorded. Plan of Treatment Reminders Order Date Submit Date Provider Last Modified By Organization Details Last Modified Time Details Appointments FOLLOW UP DAK 2024 11:30A M GOOD HERMAN MD Not available Not available Not available Lab surgical pathology study 2024 025 [facility], [address] [place] [address], [phone], 02/22/2025 11:27:31 Referral physical therapy knee referral 2017 018 [email or web address] Not available 03/30/2018 08:48:04 Procedures None recorded. Surgeries None recorded. Imaging None recorded. Medication Orders None recorded. Patient TargetsNo targets recorded. Patient Instructions Encounter Date Encounter Id Patient Instructions Last Modified By Organization Details Last Modified Time 03/29/2018 [id number] potts's cyst: care instructions [email or web address] Not available 03/29/2018 17:48:24 08/23/2024 [id number] Recommended returning to clinic in 6 months for FBSE [email or web address] Not available 08/23/2024 11:37:56 02/21/2025 [id number] Recommended returning to clinic in 6 months for FBSE Not available 02/21/2025 11:34:18 Reason for Referral Referring Physician: Freddie Christiano, Orthopedic Surgery, Encounter Date: 03/29/2018 Results Created Date Observation Date Name Description Value Unit Range Abnormal Flag Note LastModifiedBy Organization Detail LastModifiedTime 02/22/2002/21/2025 SURGI [facility]ON surgical SEE BELOW abnormal [place] topat holog y Repor t NAME: ELVA PRATER PATH: [id number] PROCE DURE DATE: 02/21 SIGNO UT DATE: 02/22 Copy to: Diagn osis: Left delto id- BASAL CELL CARCI NOMA, SUPER FICIA L Comme nt: The north ns are free of tumor in the secti ons exami cherise. AJCC: T1, Nx, Mx SOURC E OF SPECI MEN: SKIN, L DELTO ID CLINI LEON INFOR MATIO N: R/O: BCC Gross Descr iptio n: The speci men consi sted of a martínez fragm ent which was bisec harjeet and measu red 7 x 5 x 1 mm. All submi tted in one casse tte. Micro scopi c Descr iptio n: Super ficia l aggre leyva of basal oid cells are prese nt at the derma l-epi derma l junct ion. BASSAM CRANE MD Tabitha d Out Date: 02/22 11:27 1 Not Available [facility] [address], [place], [address], 02/22/2025 11:27:31 03/29/20 18 03/29/2018 XR, knee, 4 or more view [place] [facility] Susan md [address] [place] [address] Patien t Name: DAVY Lomas LEANDROWE LL Patien t : [phone] Patien t 4 Orderi ng Provid er: FREDDIE WU EXAM DATE: 2017 EXAM: XR RAJAT KNEES COMPLE TE, 4 OR MORE VWS HISTOR Y: Bilate ral knee pain COMPAR STEPHON: None. FINDIN GS: Alignm ent normal includ ing the patell ofemor al joints bilate rally. Minima l bilate ral knee joint spurri ng. No fractu re or disloc ation. No effusi on IMPRES CEE: 1. Minima l bilate ral knee joint DJD change s Interp reted By: Everardo Amezquita MD Electr onical ly Signed By: Everardo Amezquita MD on 018 4:[email or web address] [place] [address] Rad[facility] [place] [address] , [place], [address], 03/29/2018 21:58:15 Result Notes Documentation Provider Name and Address Organization Details Recorded Time Xr, Knee, 4 Or More View : [facility] [place] [address] [place] [address] Patient Name: ANNELISE POLK Patient : 1975 Patient Ordering Provider: FREDDIE WU EXAM DATE: 03/29/2018 EXAM: XR RAJAT KNEES COMPLETE, 4 OR MORE VWS HISTORY: Bilateral knee pain COMPARISON: None. FINDINGS: Alignment normal including the patellofemoral joints bilaterally. Minimal bilateral knee joint spurring. No fracture or dislocation. No effusion IMPRESSION: 1. Minimal bilateral knee joint DJD changes Interpreted By: Everardo Amezquita MD DIE WU MD [address] [place] [address], [phone] 03/29/2018 21:58:15 Problems Name Problem SNOMED Code Status Onset Date Resolution Date Notes Provider Name and Address Organization Details Recorded Time History of malignant neoplasm of skin 970752053 Active 024 Christen Velasco [facility] 4 11:36:46 Problem Notes None recorded. Procedures Surgical History Date Name Laterality Status Provider Name and Address Organization Details Recorded Time 5 DAK - ED&C; trunk,arm,leg completed Christen Velasco [facility] 05/02/2025 13:21:48 5 DAK - Cryo AK completed Christen Velasco [facility] 02/21/2025 11:39:47 5 DAK - Destruction BN Lesions completed Christen Rod [facility] 02/21/2025 11:36:49 06/18/202 5 DAK - Biopsy, Tangential completed [facility] 02/21/2025 11:39:10 4 DAK - Cryo AK completed [facility] 08/23/2024 11:43:01 4 DAK - ED&C; trunk,arm,leg completed [facility] 02/29/2024 10:47:21 Imaging Results None recorded. Procedure Notes None recorded. Medical Equipment None Reported. Allergies No known drug allergies Medications Name Sig Start Date Stop Date Status Note LastModified by Organization Details LastModified Time calcium active Not Available Not Avail able Not Available Lipitor active Not Available Not Avail able Not Available tramadol 2024 completed Not Available Not Available Not Available Vitamin D active Not Available Not Katya ilable Not Available Protonix active Not Available Not Avai lable Not Available Nexium active Not Available Not Availa ble Not Available Vitals Date Recorded Body height Body mass index (BMI) Body weight Systolic And Diastolic Provider Name and Address Organization Details Last Updated DateTime 03/29/2018 165.1 cm 27.3 kg/m2 28116.15 g 119/79 mm[Hg] Yael Flores [facility] 03/29/2018 15:55:37 Social History Question Answer Notes LastModified by Organizat ion Details LastModified Time Tobacco Smoking Status Current Every Day Smoker Yael Flores [facility] 03/29/2018 15:57:08 What Was The Date Of Your Most Recent Tobacco Screening? 08/23/2024 [email or web address] Information not available 08/23/2024 Sex: Unknown Functional Status Question Answer Note LastModified by Organization D etails LastModified Time Do you or have you ever used any other forms of tobacco or nicotine? No [email or web address] Information not available 02/29/2024 Mental Status None recorded. Family History Nothing Reported. Medical History Condition Response Diabetes N Bleeding Disorder N Thyroid Disease N Squamous Cell Carcinoma Y Heart Conditions N Blood Clot N Hernia N Tuberculosis N Migraines Y Stroke N Asthma N COPD N Pneumonia N Blood Thinners N Basal Cell Carcinoma Y Sleep Apnea N High Cholesterol Y Anesthesia Complications N Skin Cancer Y Liver Disease N Heart Attack (MD) N Hypertension N Kidney Disease N Gynecological HistoryNo gynecological history recorded. Obstetrics History GPAL:G 0 P 0 0 0 0 Past Encounters Encounter ID Performer Location Encounter Start Date Encounter Closed Date Diagnosis/Indication Diagnosis SNOMED-CT Code Diagnosis ICD10 Code Diagnosis IMO Codes Diagnosis Note [id number] FREDDIE WU MD [facility] [address] [place] [address] 03/29/2018 14:46:35 03/30/2018 07:45:56 Patellofemoral stress syndrome 394130935 M22.2X9 lateral facet compressio n Recommende d a corrective stretching and therapeuti c program. She try this for 6-8 weeks. We also discussed K taping. Safe use of oral medication s. Possible future injections . Surgery as salvage only. Synovial c yst of popliteal space 74310561 M71.21 I have recommende d careful observatio n and self-evalu ation. If it changes in size, texture, painfulnes s or other qualities she is to call me back for imaging [id number] GOOD HERMAN MD [place] [address] [place] [address] 02/29/2024 10:09:34 02/29/2024 10:52:18 Multiple benign melanocytic nevi 956494072 D22.5 - Benign moles seen on exam today - SPF 30 or higher broad-spec trum sunscreen recommende d with re-applica tion every 2 hours - Discussed sun protection measures, including wide-brimm ed hat, sun-protec tive clothing, and avoidance of sun during peak hours of 10am-4pm - Avoid tanning beds as these can increase the chances of all 3 types of skin cancer - Instructed to monitor for changes and to call us for appointmen t with any changing or worrisome lesions Seborrheic keratosis 394 845021 L82.1 - Benign overgrowth s of skin - Hereditary Senile angioma 1361584 I 78.1 - Benign blood vessel growths - Hereditary Solar lentigo 19792274 L 81.4 - Benign brown spots - Sun-induce d History of malignant neoplasm of skin 637913236 Z85.828 - No evidence of recurrence today- Call with any worrisome lesions or if treated lesions return- Return at regular intervals for skin exam as recommende d Most recent, 02/2024 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 Bx proven SCC on the right upper backOutsid e [facility] - Elaine Salazar ll add picture to chart today and have scanned in Discussed ED&C vs Exc. Will ED&C today due to pt preference [id number] GOOD HERMAN MD [address] [address] 08/23/2024 11:07:42 08/23/2024 11:46:38 History of malignant neoplasm of skin 082340798 Z85.828 - No evidence of recurrence today- Call with any worrisome lesions or if treated lesions return- Return at regular intervals for skin exam as recommende d Most recent, re vious extensive tanning bed use Multiple b enign melanocytic nevi 488631320 D22.5 - Benign moles seen on exam today - SPF 30 or higher broad-spec trum sunscreen recommende d with re-applica tion every 2 hours - Discussed sun protection measures, including wide-brimm ed hat, sun-protec tive clothing, and avoidance of sun during peak hours of 10am-4pm - Avoid tanning beds as these can increase the chances of all 3 types of skin cancer - Instructed to monitor for changes and to call us for appointmen t with any changing or worrisome lesions Seborrheic keratosis 394 409464 L82.1 - Benign overgrowth s of skin - Hereditary Senile angioma 1125573 I 78.1 - Benign blood vessel growths - Hereditary Solar lentigo 26124776 L 81.4 - Benign brown spots - Sun-induce d Actinic keratosis 883002 007 L57.0 Actinic keratoses are precancero us lesions that may progress to squamous cell carcinoma if untreated. UV light and genetics may increase risk. Treated lesions should blister, scab over, and heal within a few weeks. If treated lesion(s) does not resolve within 1-2 months, patient agrees to follow up for re-evaluat ion. [id number] GOOD HERMAN MD [address] [address] 02/21/2025 11:11:24 02/21/2025 11:47:13 History of malignant neoplasm of skin 383281509 Z85.828 - No evidence of recurrence today- Call with any worrisome lesions or if treated lesions return- Return at regular intervals for skin exam as recommende d Most recent, 4Pre vious extensive tanning bed use Multiple b enign melanocytic nevi 711882344 D22.5 - Benign moles seen on exam today - SPF 30 or higher broad-spec trum sunscreen recommende d with re-applica tion every 2 hours - Discussed sun protection measures, including wide-brimm ed hat, sun-protec tive clothing, and avoidance of sun during peak hours of 10am-4pm - Avoid tanning beds as these can increase the chances of all 3 types of skin cancer - Instructed to monitor for changes and to call us for appointmen t with any changing or worrisome lesions Seborrheic keratosis 394 940830 L82.1 - Benign overgrowth s of skin- Hereditary Counseled on benign nature. Pt elected to treat with liquid nitrogen. May recur or persist after treatment. Discolorat ion or scarring is possible. Will treat one today at no charge as test spotDiscus sed cosmetic fee if pt would like more done Senile angioma 1745576 I 78.1 - Benign blood vessel growths - Hereditary Solar lentigo 59852959 L 81.4 - Benign brown spots - Sun-induce d Neoplasm o f uncertain behavior of skin 78168425 D48.5 Left deltoid - 9mm pink macule with vessels - R/o BCC Actinic keratosis 642534 007 L57.0 Actinic keratoses are precancero us lesions that may progress to squamous cell carcinoma if untreated. UV light and genetics may increase risk. Treated lesions should blister, scab over, and heal within a few weeks. If treated lesion(s) does not resolve within 1-2 months, patient agrees to follow up for re-evaluat ion. [id number] GOOD HERMAN MD [address] [address] 05/02/2025 12:58:03 05/02/2025 13:25:15 Basal cell carcinoma of upper extremity 101324641 C44.619 [id number] Biopsy proven BCC, superficia l on the left deltoidPat h #:[id number] gy discussed with patientSit e confirmed with photo Health Concerns Section Related Observation LastModified by Organization Detai ls LastModified Time None Recorded Concern Status LastModified by Organization Details LastModified Time None Recorded Advance Directives Directive None Recorded Payers Insurance Date Sequence Insurance Name Policy Number Policy [place] Covered Member ID [place] Member ID Guarantor Name 04/29/2025 1 [employer] [id number] Annelise Polk [id number] Annelise Polk Notes Date Note Type Note Provider Name and Address Organization Details Recorded Time 03/29/2018 text/html ROS as noted in the HPI 42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 Chief complaints are bilateral patellofemoral crepitation and a feeling of swelling in the popliteal fossa of the right knee. No effusions locking or catching. Bothers her with stairs and lunging.no treatmenttreatment to date FREDDIE WU MD [address] [place] [address], [phone], [facility] 03/29/2018 17:48:51 02/29/2024 text/html Skin LesionRepor harjeet by PatientPt had bx done by PCP and it came back as a SCC, pt did bring path report with her today.Location: Right upper backBx done: [id number]: SCCROS as noted in the HPI Here for a full body skin examination- last skin check was in August 2022- no history of skin cancer, Hx of Ak's.- spots of concern today: face, right upper back GOOD HERMAN MD [address] [place] [address], [phone], [facility] 02/29/2024 14:56:01 08/23/2024 text/html ROS as noted in the HPI Here for a full body skin examination - last skin check: 02/2024- history of skin cancer - SCC- last skin cancer was in 02/2024- spots of concern today: Right jawline, right forehead, right breast, right thigh GOOD HERMAN MD [address] [place] [address], [phone], [facility] 08/23/2024 12:15:10 02/21/2025 text/html ROS as noted in the HPI Here for a full body skin examination - last skin check: 08/23/24- history of skin cancer - SCC- last skin cancer was in Right upper back , ED&C- spots of concern today: face, back, chest GOOD HERMAN MD [address] [place] [address], [phone], [facility] 02/23/2025 19:36:11 05/02/2025 text/html Patient is here for an ED&C - type of cancer: superficial BCC - location: Left deltoid GOOD HERMAN MD [address] [place] [address], [phone], [facility] 05/02/2025 14:35:04 OBGyn Episode No OBEpisode recorded.
--- OUTSIDE RECORDS SUMMARY | 2025-07-18 14:39 | XMS_ITS | Clinical Summary ---
Author Organization Healthcare Address [address] [place] [address] Care Team Providers Care Negative Cutter Name Role Phone Shahram Gupta MD Primary Care Provider + [phone] Family History Medical History Relation Name Comments [...] of Treatment Not on file Care Teams Negative Cutter Relationship Specialty Start Date End Date Shahram Gupta MD [address] [place] [address] PCP - General 01/17/21
== END 2025-07-18 23:59 | disposition home or self-care (01) ==
LOC: RAD 14:37
PROVIDERS: PCP Nurse Practitioner Family; Visit Provider Nurse Practitioner Family
DX: Z12.2 Encounter for screening for malignant neoplasm of respiratory organs (principal); F17.210 Nicotine dependence, cigarettes, uncomplicated; J98.4 Other disorders of lung; R91.8 Other nonspecific abnormal finding of lung field
CPT/HCPCS: 71271